=== PATIENT | female | born 1960 | race Caucasian/White ===

== ENCOUNTER → 2018-08-21 09:27 | Outpatient (CLI) | payer OTHER, SELFPAY ==
--- NOTE | 2018-08-21 09:29 | BI_ITS ---
MAMMOGRAPHY - BILATERAL SCREENING 3-D MASSIMO SYNTHESIS REASON FOR EXAM: Female, 57 years old. Bilateral Screening 3-D tomosynthesis PERTINENT HISTORY: Asymptomatic. No significant family history. TECHNIQUE: 2-D mammograms and 3-D Massimo synthesis of the breast (s) were performed. CAD was performed. COMPARISON: 08/04/2016. FINDINGS: The breast composition is almost entirely fat. Asymmetric density right breast anterior third lower inner quadrant noted, electronically circled with CC and MLO views for which spot compression views are recommended as well as a right true lateral view. Possible right breast targeted ultrasound as clinically indicated. Scattered benign appearing calcifications are again seen. No dense spiculated dominant masses or suspicious microcalcification cluster are identified. No adenopathy, skin thickening or nipple retraction identified. BI/SCREENING MAMM (CAD), BILAT IMPRESSION: Incomplete mammogram Additional right mammographic and possible ultrasound imaging recommended as described. ASSESSMENT CATEGORY: BIRADS Category 0: Incomplete. Need additional imaging evaluation as above. A letter regarding these results will be sent to the patient by the facility within 30 days. FOLLOW UP RECOMMENDATION: Additional imaging recommended as above. (E) Negative mammographic results should not deter biopsy as a palpable lesion if present should be followed on clinical grounds and biopsy performed if clinically persistent for 3 months or increasing size. Approximately 10% of breast cancers are not detected by mammography. A normal mammogram should not delay biopsy of a clinically suspicious abnormality. Dense breast tissue mainstream neoplasm. Electronically Signed: Papito Hawthorne, at 14:33 EDT Tel , Service support ,
[2018-08-25 13:36] LABS: HPV APTIMA, High Risk Negative (Negative)
== END ==
PROVIDERS: Family Provider Family Medicine; PCP Family Medicine; Referring Provider Nurse Practitioner Women's Health; Visit Provider Nurse Practitioner Women's Health
DX: Z12.31 Encounter for screening mammogram for malignant neoplasm of breast (principal); Z12.4 Encounter for screening for malignant neoplasm of cervix
CPT/HCPCS: 77063; 77067; 88175; G0145

== ENCOUNTER → 2018-08-29 08:56 | Outpatient (CLI) | payer OTHER, SELFPAY ==
--- NOTE | 2018-08-29 09:00 | BI_ITS ---
MAMMOGRAPHY - UNILATERAL DIAGNOSTIC: RIGHT BREAST REASON FOR EXAM: Female, 57 years old. Abnormal screening mammogram. PERTINENT HISTORY: Non-contributory. TECHNIQUE: Compression spot views of the right breast were obtained in the mediolateral oblique and craniocaudad views. CAD: Full Field Digital Mammography with Computer Added Detection was performed. COMPARISON: Comparison is made with prior mammogram dated August 21, 2018. FINDINGS: Breast Composition: The breasts are almost entirely fatty. There is a persistent 5 mm nodular density in the central medial portion of the right breast. Correlation with ultrasound is recommended. No other significant abnormalities are identified. BI/DIAG MAMM W/CAD, UNILAT IMPRESSION: Persistent 5 mm nodular density in the central medial portion of the right breast as described. Correlation with ultrasound is recommended. ASSESSMENT CATEGORY: BIRADS Category 0: Incomplete. Need additional imaging evaluation. A letter regarding these results will be sent to the patient by the facility within 30 days. Approximately 10% of breast cancers are not detected by mammography. A normal mammogram should not delay biopsy of a clinically suspicious abnormality. Electronically Signed: Jonh Young MD at 11:25 EDT Tel [phone], Service support ,
--- NOTE | 2018-08-29 09:00 | US_ITS ---
STUDY: ULTRASOUND BREAST - RIGHT REASON FOR EXAM: Female, 57 years old. Abnormal screening mammogram. TECHNIQUE: Axial and longitudinal images of the RIGHT breast were performed with a high resolution ultrasound transducer. COMPARISON: Comparison is made with prior mammogram done earlier in the day. FINDINGS: RIGHT Breast: There is a 5 mm x 5 mm x 3 mm cyst at the 3:00 position breast at 4 cm from nipple. There is also evidence of a 3 mm x 4 mm x 2 mm cyst at the 3:30 position breast at 2 cm from nipple. US/Breast Limited Unilateral IMPRESSION: 2 subcentimeters cysts are seen in the inferior medial portion of the right breast. ASSESSMENT CATEGORY: BIRADS Category 2: Benign. A letter regarding these results will be sent to the patient by the facility within 30 days. Electronically Signed: Jonh Young MD at 13:38 EDT Tel [phone], Service support ,
== END ==
PROVIDERS: Family Provider Family Medicine; PCP Family Medicine; Visit Provider Nurse Practitioner Women's Health
DX: R92.8 Other abnormal and inconclusive findings on diagnostic imaging of breast (principal)
CPT/HCPCS: 76642; 77065

== ENCOUNTER 2019-01-26 12:42 | Observation (INO) | payer OTHER, SELFPAY ==
[2019-01-26] VITALS (10 sets, daily range): BP systolic 141–207; BP diastolic 69–107; PULSE 50–56; RESP 16–18; TEMP 36.4–36.6; O2SAT 96–99; BMI 49.6
--- NOTE | 2019-01-26 13:02 | EKG12_ITS ---
Test Reason : REPEAT EKG Blood Pressure : / mmHG Vent. Rate : 052 BPM Atrial Rate : 052 BPM P-R Int : 170 ms QRS Dur : 092 ms QT Int : 476 ms P-R-T Axes : 017 032 047 degrees QTc Int : 442 ms Sinus bradycardia Otherwise normal ECG Confirmed by CAMILLA VELAZQUEZ ([id number]), editorial assistant MICHAEL FERNANDEZ ([id number]) on 01/29/2019 4:42:33 PM Referred By: PENELOPE Confirmed By:CAMILLA VELAZQUEZ
--- NOTE | 2019-01-26 13:04 | ED.VISSUMM ---
- ER Visit Summary Date of Service: 01/26/19 Chief Complaint: Just do not feel right History of Present Illness: The patient is a 58 F who presents for 1 week of episodic chest discomfort and left arm discomfort with some associated shortness of breath. Patient is unable to describe it but states she just does not feel right. Patient had return of her symptoms this morning and they have been ongoing for at least 2 hours. She took 1 full dose aspirin. Patient states she has left-sided neck pain that will shoot sharply into her left arm at times, and she initially thought this is what it was. However she is having diffuse chest discomfort with radiation into the left arm that is different from her chronic neck pain. Patient is currently denying any shortness of breath. No cough, abdominal pain, back pain, fever, or other complaints. Patient takes metformin but is not been diagnosed as diabetic. She has hypertension and hypercholesterolemia. She does not smoke tobacco. Denies any family history of coronary artery disease. Physical Examination: Vital signs: afebrile, hemodynamically stable, no hypoxia on room air General: well nourished, well developed, in no distress Skin: warm, dry, no rash, no pallor HEENT: normocephalic and atraumatic; PERRL, EOMI, moist mucous membranes Cardiovascular: regular rate and rhythm without murmurs, no peripheral edema, 2+ pulses all distal extremities Respiratory: No increased work of breathing, lungs are clear to auscultation bilaterally, no rales, rhonchi or wheezing Abdominal: Abdomen is soft, nontender with normoactive bowel sounds, no guarding or rebound, no masses MSK: Moves all extremities, no deformities, normal strength Neuro: Awake and alert, oriented ?4. No facial droop, sensation and motor function intact and symmetric Test Results: Abnormal Lab Results 01/26/19 01/26/19 01/26/19 13:00 13:00 13:30 WBC 9.4 RBC 4.79 Hgb 13.5 Hct 41.7 MCV 87.1 MCH 28.2 MCHC 32.4 RDW 12.9 RDW Differential 40.2 Plt Count 256 MPV 10.3 Immature Gran % (Auto) 0.200 Neut % (Auto) 66.2 Lymph % (Auto) 23.2 [place] % (Auto) 8.9 Eos % (Auto) 1.3 Baso % (Auto) 0.2 Absolute Neuts (auto) 6.2 Absolute Lymphs (auto) 2.17 Total Counted Not Reportable Sodium Cancelled 137 Potassium Cancelled 3.7 Chloride Cancelled 105 Carbon Dioxide Cancelled 28.0 Anion Gap Cancelled 4 L BUN Cancelled 15 Creatinine Cancelled 0.71 Estim Creat Clear Calc Cancelled 74.58 Est GFR (MDRD) Af Amer Cancelled 109 Est GFR (MDRD) Non-Af Cancelled 90 BUN/Creatinine Ratio Cancelled 21.2 H Glucose Cancelled 93 Calcium Cancelled 8.6 Troponin I Cancelled < 0.015 Clinical Impression(s) from Imaging Studies Chest X-Ray 01/26/19 13:15 IMPRESSION: Mild cardiomegaly. Hyperinflation. Scattered calcified granulomas. Electronically Signed: Jonh Young, at 13:38 EDT , Service support , Medications Given Discontinued Medications Morphine Sulfate () 4 mg IV X1 ONE Stop: 01/26/19 14:34 Nitroglycerin (Nitrostat) 0.4 mg SUBLINGUAL Q5M GRISEL Stop: 01/26/19 13:26 Last Admin: 01/26/19 13:43 Dose: 0.4 mg Admin: 01/26/19 13:38 Dose: 0.4 mg Admin: 01/26/19 13:33 Dose: 0.4 mg Emergency Department Course and Treatment: Patient presents for intermittent episodes of chest discomfort, currently experiencing the discomfort. She was given nitroglycerin without any relief. Patient was then given morphine. EKG showed sinus bradycardia without any ischemic changes. Troponin negative. Labs otherwise unremarkable. Chest x-ray showed mild enlarged cardiac silhouette without any other acute findings. A repeat EKG was performed since patient had not received any relief of her discomfort, and it was unchanged from prior. Because of patient's chest discomfort complaint and multiple risk factors for coronary artery disease, patient will be admitted as observation status for further chest pain rule out. HEART score is 5. Patient was discussed with Dr. Soto for admission. Treatment Plan: [] Disposition: [] Impression: Chest pain, concern for ACS This note was generated with The Extraordin[employer]ation software. It may contain incorrect words, spelling, and punctuation that were not noted in review of the chart prior to signing ED Disposition - Plan for ED Patient: Referrals: Tono Flowers MD [Primary Care Provider] -
--- NOTE | 2019-01-26 13:07 | ED.DCSUM_ITS ---
- ER Visit Summary Date of Service: 01/26/19 Chief Complaint: Just do not feel right History of Present Illness: The patient is a 58 F who presents for 1 week of episodic chest discomfort and left arm discomfort with some associated shortness of breath. Patient is unable to describe it but states she just does not feel right. Patient had return of her symptoms this morning and they have been ongoing for at least 2 hours. She took 1 full dose aspirin. Patient states she has left-sided neck pain that will shoot sharply into her left arm at times, and she initially thought this is what it was. However she is having diffuse chest discomfort with radiation into the left arm that is different from her chronic neck pain. Patient is currently denying any shortness of breath. No cough, abdominal pain, back pain, fever, or other complaints. Patient takes metformin but is not been diagnosed as diabetic. She has hypertension and hypercholesterolemia. She does not smoke tobacco. Denies any family history of coronary artery disease. Physical Examination: Vital signs: afebrile, hemodynamically stable, no hypoxia on room air General: well nourished, well developed, in no distress Skin: warm, dry, no rash, no pallor HEENT: normocephalic and atraumatic; PERRL, EOMI, moist mucous membranes Cardiovascular: regular rate and rhythm without murmurs, no peripheral edema, 2+ pulses all distal extremities Respiratory: No increased work of breathing, lungs are clear to auscultation bilaterally, no rales, rhonchi or wheezing Abdominal: Abdomen is soft, nontender with normoactive bowel sounds, no guarding or rebound, no masses MSK: Moves all extremities, no deformities, normal strength Neuro: Awake and alert, oriented ?4. No facial droop, sensation and motor function intact and symmetric Test Results: Abnormal Lab Results 01/26/19 01/26/19 01/26/19 13:00 13:00 13:30 WBC 9.4 RBC 4.79 Hgb 13.5 Hct 41.7 MCV 87.1 MCH 28.2 MCHC 32.4 RDW 12.9 RDW Differential 40.2 Plt Count 256 MPV 10.3 Immature Gran % (Auto) 0.200 Neut % (Auto) 66.2 Lymph % (Auto) 23.2 [place] % (Auto) 8.9 Eos % (Auto) 1.3 Baso % (Auto) 0.2 Absolute Neuts (auto) 6.2 Absolute Lymphs (auto) 2.17 Total Counted Not Reportable Sodium Cancelled 137 Potassium Cancelled 3.7 Chloride Cancelled 105 Carbon Dioxide Cancelled 28.0 Anion Gap Cancelled 4 L BUN Cancelled 15 Creatinine Cancelled 0.71 Estim Creat Clear Calc Cancelled 74.58 Est GFR (MDRD) Af Amer Cancelled 109 Est GFR (MDRD) Non-Af Cancelled 90 BUN/Creatinine Ratio Cancelled 21.2 H Glucose Cancelled 93 Calcium Cancelled 8.6 Troponin I Cancelled < 0.015 Clinical Impression(s) from Imaging Studies Chest X-Ray 01/26/19 13:15 IMPRESSION: Mild cardiomegaly. Hyperinflation. Scattered calcified granulomas. Electronically Signed: Jonh Young, at 13:38 EDT , Service support , Medications Given Discontinued Medications Morphine Sulfate () 4 mg IV X1 ONE Stop: 01/26/19 14:34 Nitroglycerin (Nitrostat) 0.4 mg SUBLINGUAL Q5M GRISEL Stop: 01/26/19 13:26 Last Admin: 01/26/19 13:43 Dose: 0.4 mg Admin: 01/26/19 13:38 Dose: 0.4 mg Admin: 01/26/19 13:33 Dose: 0.4 mg Emergency Department Course and Treatment: Patient presents for intermittent episodes of chest discomfort, currently experiencing the discomfort. She was g iven nitroglycerin without any relief. Patient was then given morphine. EKG showed sinus bradycardia without any ischemic changes. Troponin negative. Labs otherwise unremarkable. Chest x-ray showed mild enlarged cardiac silhouette without any other acute findings. A repeat EKG was performed since patient had not received any relief of her discomfort, and it was unchanged from prior. Because of patient's chest discomfort complaint and multiple risk factors for coronary artery disease, patient will be admitted as observation status for further chest pain rule out. HEART score is 5. Patient was discussed with Dr. Soto for admission. Treatment Plan: [] Disposition: [] Impression: Chest pain, concern for ACS This note was generated with [employer] software. It may contain incorrect words, spelling, and punctuation that were not noted in review of the chart prior to signing ED Disposition - Plan for ED Patient: Referrals: Tono Flowers MD [Primary Care Provider] -
--- NOTE | 2019-01-26 13:15 | RAD_ITS ---
STUDY: X-RAY CHEST REASON FOR EXAM: Female, 58 years old. Chest pain. Hypertension. TECHNIQUE: PA and lateral views of the chest. COMPARISON: Comparison is made with prior examination dated July 17, 2015. FINDINGS: EKG electrodes are seen. Hyperinflation. Scattered calcified granulomas. No acute infiltrate is seen. There is no demonstrated pleural abnormality. There is mild cardiac enlargement. Normal mediastinum and liss. Normal visualized pulmonary arteries. Normal visualized aortic arch and descending thoracic aorta. Normal visualized thoracic spine. Normal visualized ribs, clavicles, and shoulders. There is no demonstrated abnormality of the visualized soft tissue structures of the upper abdomen. RAD/Chest PA and Lateral IMPRESSION: Mild cardiomegaly. Hyperinflation. Scattered calcified granulomas. Electronically Signed: Jonh Young, at 13:38 EDT , Service support ,
[2019-01-26 13:19] LABS: Absolute Lymphocyte Count 2.17 X10^3/ul (0.83-4.51); Absolute Neutrophil Count 6.2 X10^3/uL (2.0-7.7); Basophil# 0.02 X10^3/uL; Basophil% 0.2 % (0-1); Eosinophil# 0.12 X10^3/uL; Eosinophils% 1.3 % (0-5); Hematocrit 41.7 % (37-47); Hemoglobin 13.5 g/dl (12.0-15.0); Lymphocyte # 2.17 X10^3/ul (4.0); Lymphocyte % 23.2 % (19-41); Mean Corp Hgb Conc 32.4 g/gl (32-36); Mean Corpuscular Hgb 28.2 pg (27.0-32.0); Mean Corpuscular Volume 87.1 fL (81-99); Mean Platelet Vol. 10.3 fl (6.2-12.0); Monocyte# 0.83 X10^3/uL; Monocyte% 8.9 % (0-10); Neutrophil # 6.19 X10^3/uL (2.7-7.7); Neutrophil % 66.2 % (47-70); Platelet Count 256 K/mm3 (150-450); RBC Distribution Width CV 12.9 % (11.6-14.6); RBC Distribution Width SD 40.2 fl (35.1-43.9); Red Blood Count 4.79 M/mm3 (4.2-5.4); White Blood Count 9.4 K/mm3 (4.4-11.0)
[2019-01-26 13:20] LABS: POSITIVE COUNT NO; POSITIVE DIFFERENTIAL NO; POSITIVE MORPHOLOGY NO
--- NOTE | 2019-01-26 13:22 | NURSING ---
chemistries hemolized
[2019-01-26 13:59] LABS: Anion Gap 4 (5-15); BUN 15 mg/dL (7-18); BUN/Creat Ratio 21.2 RATIO (10-20); Calcium,Total 8.6 mg/dL (8.5-10.1); Chloride 105 mmol/L (98-107); Creatinine, Serum 0.71 mg/dL (0.55-1.02); EST Glomerular Filtration Rate 90 mL/min (>60); Est Glom Filt Rate - Afr Amer 109 mL/min (>60); Estimated Creatinine Clearance 74.58 ml/min; Glucose 93 mg/dL (74-106); Potassium 3.7 mmol/L (3.5-5.1); Sodium Level 137 mmol/L (136-145)
--- NOTE | 2019-01-26 14:33 | EKG12_ITS ---
Test Reason : CP Blood Pressure : / mmHG Vent. Rate : 053 BPM Atrial Rate : 053 BPM P-R Int : 162 ms QRS Dur : 094 ms QT Int : 446 ms P-R-T Axes : 042 037 056 degrees QTc Int : 418 ms Sinus bradycardia Otherwise normal ECG Confirmed by CAMILLA VELAZQUEZ ([id number]), book or script editor MICHAEL FERNANDEZ ([id number]) on 01/29/2019 4:43:04 PM Referred By: PENELOPE Confirmed By:CAMILLA VELAZQUEZ
--- NOTE | 2019-01-26 14:58 | NURSING ---
PCU OBS CP, CONCERN FOR ACS
[2019-01-26] MEDS: Morphine 4 MG/ML Syringe IV (15:13)
--- NOTE | 2019-01-26 15:32 | EKG12_ITS ---
Test Reason : CP Blood Pressure : / mmHG Vent. Rate : 049 BPM Atrial Rate : 049 BPM P-R Int : 162 ms QRS Dur : 096 ms QT Int : 492 ms P-R-T Axes : 041 037 048 degrees QTc Int : 444 ms Sinus bradycardia Otherwise normal ECG When compared with ECG of 26-JAN-2019 14:38, MANUAL COMPARISON REQUIRED, DATA IS UNCONFIRMED Confirmed by VIVI HALE, MARIO ([id number]), news video editor MICHAEL FERNANDEZ ([id number]) on 01/31/2019 1:22:41 PM Referred By: STEVE Confirmed By:MARIO TRINIDAD MD
--- NOTE | 2019-01-26 15:57 | HP.PCM_ITS ---
Problem List (1) Atypical chest pain Status: Acute (2) Dyslipidemia Status: Acute (3) Hypertension Status: Chronic (4) Diabetes mellitus type II Status: Chronic History of Present Illness Date of Admission: 01/26/19 Chief Complaint: Chest pain The patient is a 58 year old F with history of hypertension, dyslipidemia and diabetes mellitus type 2 came to ED with intermittent chest pain for about 1 week. Chest pain is mainly midsternal to left-sided with radiation to left arm, last for a few seconds to a few minutes, unrelated to activity. Patient did not come to ER as he thought it is from her cervical spine arthritis. EKG in ED shows sinus bradycardia at 53 bpm. Previous EKG in July 2015 shows 61 bpm with PVCs. Chest x-ray shows mild cardiomegaly and hyperinflation no acute disease Past Medical History Past Medical History (Chronic Problems): Chronic Problems (Last Reviewed 08/21/18 @ 08:13 by Teresa Sandoval) Hypertension (Chronic) Diabetes mellitus type II (Chronic) Medical History: Medical History (Last Reviewed 08/21/18 @ 08:13 by Teresa Sandoval) Anxiety and depression F41.9, F32.9 Hypertension I10 Allergies Penicillins Allergy (Verified 01/26/19 12:46) Rash Home Medications: Ambulatory Orders Medication Instructions Recorded Lisinopril [Zestril] 10 mg PO BID 07/17/15 Metoprolol Tartrate [Lopressor 150 mg PO DAILY 07/17/15 (beta mg)] Multivitamins,Therapeutic 1 tab PO DAILY 07/17/15 [Multivitamin] Sertraline HCl [Zoloft] 50 mg PO DAILY 07/17/15 Hydrochlorothiazide [Hctz] 25 mg PO DAILY 01/26/19 Metformin HCl 750 mg PO DAILY 01/26/19 Pravastatin Sodium 40 mg PO QHS 01/26/19 Surgical History: Surgical History (Last Updated 08/21/18 @ 08:13 by Teresa Sandoval) Status post right foot surgery Z98.890 Surgical History: noncontributory Smoking Status: Never smoker - *Family History Maternal History Items: - - No history of premature coronary artery disease Review of Systems Constitutional: Denies: Chills, Fever, Weight Change HEENT: Denies: Head Aches, Sinus Congestion, Sinus Drainage Cardiovascular: Reports: Chest Pain. Denies: Palpitations Respiratory: Reports: Shortness of Breath. Denies: Cough, Shortness of breath at rest, Sputum production Gastrointestinal: Denies: Abdominal Pain, Nausea, Vomiting Genitourinary: Denies: Dysuria Musculoskeletal: Reports: Back Pain, Joint Pain, Joint stiffness, Neck Pain. Denies: Joint Tenderness Skin: Denies: Rash, Wounds Neurological: Denies: Numbness, Tingling, Focal weakness Psychiatric: Denies: Anxiety, Depression, Homicidal Ideations, Suicidal Ideations Hematologic/ Lymphatic: Denies: Easy Bruising, Easy Bleeding VTE Information - Inpt Only VTE Present on Admission: No VTE Mechan Device Prophylaxis: None VTE Pharm Prophylaxis ordered?: Yes Patient Problems: Active and Suspected Problems (Last Reviewed 08/21/18 @ 08:13 by Teresa Sandoval) Atypical chest pain (Acute) Dyslipidemia (Acute) - Physical Exam General: Alert, Oriented x3, Cooperative HEENT: Atraumatic, PERRLA, EOMI, Normocephalic Neck: Supple, No JVD, Negative Carotid Bruits Lungs: Clear to auscultation, Normal air movement, No rhonchi, No wheeze, No rales Cardiovascular: Regular rate, Regular Rhythm, Normal S1, Normal S2, No murmurs Abdomen: Bowel Sounds Present, Soft, Non Tender, Non-Distended Extremities: Capillary Refill Less than 3 Seconds, Edema Skin: No rashes, No breakdown Musculoskeletal: No Tenderness to Palpation of Joints or Extremities, Arthritic Changes Lymphatic: No Cervical, Supraclavicular, or Inguinal Adenopathy Neurological: Cranial nerves II-XII grossly intact, Deep Tendon Reflexes 2+/4 and Symmetrical, Neuro grossly intact Psych/Mental Status: Normal Affect, Appropriate Vital Signs Temp Pulse Resp BP Pulse Ox 97.5 F L 51 L 16 161/95 H 99 01/26/19 12:43 01/26/19 15:14 01/26/19 15:14 01/26/19 15:14 01/26/19 15:14 Oxygen Flow Rate (L/min) 2 Oxygen Delivery Method Nasal Cannula Weight: 289 lb 0.416 oz Body Mass Index (BMI) 49.6 Laboratory Tests Past 24 Hrs 01/26/19 01/26/19 01/26/19 13:00 13:00 13:30 WBC 9.4 RBC 4.79 Hgb 13.5 Hct 41.7 MCV 87.1 MCH 28.2 MCHC 32.4 RDW 12.9 RDW Differential 40.2 Plt Count 256 MPV 10.3 Immature Gran % (Auto) 0.200 Neut % (Auto) 66.2 Lymph % (Auto) 23.2 [place] % (Auto) 8.9 Eos % (Auto) 1.3 Baso % (Auto) 0.2 Absolute Neuts (auto) 6.2 Absolute Lymphs (auto) 2.17 Total Counted Not Reportable Sodium Cancelled 137 Potassium Cancelled 3.7 Chloride Cancelled 105 Carbon Dioxide Cancelled 28.0 Anion Gap Cancelled 4 L BUN Cancelled 15 Creatinine Cancelled 0.71 Estim Creat Clear Calc Cancelled 74.58 Est GFR (MDRD) Af Amer Cancelled 109 Est GFR (MDRD) Non-Af Cancelled 90 BUN/Creatinine Ratio Cancelled 21.2 H Glucose Cancelled 93 Calcium Cancelled 8.6 Troponin I Cancelled < 0.015 Assessment/Plan All Active Problems (Last Reviewed 08/21/18 @ 08:13 by Teresa Sandoval) Atypical chest pain (Acute) Dyslipidemia (Acute) The patient is a 58 year old F with history of hypertension, dyslipidemia and borderline diabetes mellitus type 2 came to ED with intermittent chest pain for about 1 week. Chest pain is mainly midsternal to left-sided with radiation to left arm, last for a few seconds to a few minutes, unrelated to activity, sometimes associated with shortness of breath. Patient did not come to ER as he thought it is from her cervical spine arthritis. EKG in ED shows sinus bradycardia at 53 bpm. Previous EKG in July 2015 shows 61 bpm with PVCs. Chest x-ray shows mild cardiomegaly and hyperinflation no acute disease. Vital signs in the ED shows elevated blood pressure 207/107, heart rate 52. Respiratory rate 16. 1. Atypical chest pain: Patient is being admitted to PCU. Patient had stress test more than 5 years ago and probably was negative. Cycle cardiac enzymes. Treadmill nuclear stress test tomorrow morning. On baby aspirin, metoprolol, lisinopril and statin. Nitro sublingual as needed for chest pain. 2. Hypertension: Blood pressure is uncontrolled. Last time it was 130 systolic in physician office about 3 months ago. On lisinopril 10 mg twice daily. Hydralazine 10 mg IV every 4 hourly as needed for systolic blood pressure more than 180 mmHg. 3. Borderline diabetes mellitus type 2: Glucose is 93 and BMP. She thinks he has borderline diabetes. A1c tomorrow a.m. 4. Other chronic comorbidities include dyslipidemia, morbid obesity, chronic degenerative arthritis of cervical spine, lumbar spine and bilateral knee joints. Home medication reconciliation done. DVT prophylaxis: On Lovenox 40 mg subcu daily. Clinical Impression(s) from Imaging Studies Chest X-Ray 01/26/19 13:15 IMPRESSION: Mild cardiomegaly. Hyperinflation. Scattered calcified granulomas. Laboratory Results 01/26/19 13:00: WBC 9.4, RBC 4.79, Hgb 13.5, Hct 41.7, MCV 87.1, MCH 28.2, MCHC 32.4, RDW 12.9, RDW Differential 40.2, Plt Count 256, MPV 10.3, Immature Gran % (Auto) 0.200, Neut % (Auto) 66.2, Lymph % (Auto) 23.2, [place] % (Auto) 8.9, Eos % (Auto) 1.3, Baso % (Auto) 0.2, Absolute Neuts (auto) 6.2, Absolute Lymphs (auto) 2.17, Total Counted Not Reportable 01/26/19 13:30: Sodium 137, Potassium 3.7, Chloride 105, Carbon Dioxide 28.0, Anion Gap 4 L, BUN 15, Creatinine 0.71, Estim Creat Clear Calc 74.58, Est GFR (MDRD) Af Amer 109, Est GFR (MDRD) Non-Af 90, BUN/Creatinine Ratio 21.2 H, Glucose 93, Calcium 8.6, Troponin I < 0.015 [] Code Visit OBSV E&M: 52598 Initial observation care L3
[2019-01-26] MEDS: Enoxaparin 40 MG/0.4 ML Syringe SC (16:19)
[2019-01-26 20:36] LABS: Hematocrit 37.8 % (37-47); Hemoglobin 12.1 g/dl (12.0-15.0); Mean Corpuscular Hgb 27.8 pg (27.0-32.0); Mean Corpuscular Volume 86.9 fL (81-99); Mean Platelet Vol. 9.9 fl (6.2-12.0); Platelet Count 235 K/mm3 (150-450); RBC Distribution Width CV 12.8 % (11.6-14.6); RBC Distribution Width SD 41.1 fl (35.1-43.9); Red Blood Count 4.35 M/mm3 (4.2-5.4); White Blood Count 10.3 K/mm3 (4.4-11.0)
[2019-01-26 20:37] LABS: Scan Indicated on CBC? Y/N NO
[2019-01-26 20:49] LABS: Anion Gap 4 (5-15); BUN 14 mg/dL (7-18); BUN/Creat Ratio 17.6 RATIO (10-20); Calcium,Total 8.4 mg/dL (8.5-10.1); Chloride 101 mmol/L (98-107); EST Glomerular Filtration Rate 79 mL/min (>60); Est Glom Filt Rate - Afr Amer 95 mL/min (>60); Estimated Creatinine Clearance 66.19 ml/min; Glucose 94 mg/dL (74-106); Potassium 3.1 mmol/L (3.5-5.1); Sodium Level 135 mmol/L (136-145)
[2019-01-26 20:56] LABS: Partial Thromboplast Time 31.5 Seconds (24.1-36.2); Prothrombin Time (Protime)PT. 13.2 SECONDS (11.7-14.9)
[2019-01-26] MEDS: Lisinopril 10 MG Tablet PO (22:22)
[2019-01-26] MEDS: Pravastatin 40 MG Tablet PO (22:41)
[2019-01-27] VITALS (8 sets, daily range): BP systolic 130–148; BP diastolic 49–77; PULSE 52–78; RESP 16–18; TEMP 36.1–37.2; O2SAT 96–97
[2019-01-27 05:35] LABS: Absolute Lymphocyte Count 2.39 X10^3/ul (0.83-4.51); Absolute Neutrophil Count 5.9 X10^3/uL (2.0-7.7); Basophil# 0.03 X10^3/uL; Basophil% 0.3 % (0-1); Eosinophil# 0.13 X10^3/uL; Eosinophils% 1.4 % (0-5); Hematocrit 37.7 % (37-47); Hemoglobin 12.3 g/dl (12.0-15.0); Lymphocyte # 2.39 X10^3/ul (4.0); Lymphocyte % 25.7 % (19-41); Mean Corp Hgb Conc 32.6 g/gl (32-36); Mean Corpuscular Hgb 28.4 pg (27.0-32.0); Mean Corpuscular Volume 87.1 fL (81-99); Mean Platelet Vol. 9.4 fl (6.2-12.0); Monocyte# 0.81 X10^3/uL; Monocyte% 8.7 % (0-10); Neutrophil # 5.91 X10^3/uL (2.7-7.7); Neutrophil % 63.6 % (47-70); POSITIVE COUNT NO; POSITIVE DIFFERENTIAL NO; POSITIVE MORPHOLOGY NO; Platelet Count 194 K/mm3 (150-450); RBC Distribution Width CV 12.9 % (11.6-14.6); RBC Distribution Width SD 41.4 fl (35.1-43.9); Red Blood Count 4.33 M/mm3 (4.2-5.4); White Blood Count 9.3 K/mm3 (4.4-11.0)
[2019-01-27 05:46] LABS: Partial Thromboplast Time 29.6 Seconds (24.1-36.2)
--- NOTE | 2019-01-27 05:55 | EKG12_ITS ---
Test Reason : AM EKG Blood Pressure : / mmHG Vent. Rate : 053 BPM Atrial Rate : 053 BPM P-R Int : 146 ms QRS Dur : 092 ms QT Int : 476 ms P-R-T Axes : 017 035 051 degrees QTc Int : 446 ms Sinus bradycardia Otherwise normal ECG When compared with ECG of 26-JAN-2019 16:27, MANUAL COMPARISON REQUIRED, DATA IS UNCONFIRMED Confirmed by VIVI HALE, MARIO ([id number]), publication editor MICHAEL FERNANDEZ ([id number]) on 01/31/2019 1:22:00 PM Referred By: DR KOHLI Confirmed By:MARIO TRINIDAD MD
[2019-01-27 06:00] LABS: International Normalized Ratio 1.1; Prothrombin Time (Protime)PT. 13.9 SECONDS (11.7-14.9)
[2019-01-27 06:04] LABS: Anion Gap 6 (5-15); BUN 13 mg/dL (7-18); Calcium,Total 8.6 mg/dL (8.5-10.1); Chloride 104 mmol/L (98-107); Cholesterol 148 mg/dL (200); Creatinine, Serum 0.76 mg/dL (0.55-1.02); EST Glomerular Filtration Rate 83 mL/min (>60); Est Glom Filt Rate - Afr Amer 100 mL/min (>60); Estimated Creatinine Clearance 69.67 ml/min; Glucose 148 mg/dL (74-106); High Density Lipoprotein 47 mg/dL; Magnesium 2.2 mg/dL (1.6-2.6); Potassium 3.6 mmol/L (3.5-5.1); Sodium Level 140 mmol/L (136-145); Triglycerides 174 mg/dL; Very Low Density Lipoprotein 35 mg/dL (5-40)
[2019-01-27] MEDS: Lisinopril 10 MG Tablet PO (06:19)
[2019-01-27] MEDS: Aspirin E.C. 81 MG Tablet PO (06:19)
--- NOTE | 2019-01-27 08:00 | STEWCON_ITS ---
Reason For Study: Chest Pain Stress Results Protocol: Dobutamine Stress Echo Maximum Predicted HR: 162 bpm Target HR: 138 bpm % Maximum Predicted HR: 81 % DurationHeart Rate Stage (mm:ss) (bpm) BP Comment Baseline 56 149/93No Chest Pain; Definity 0.6 ML Given DSE 10 MCG 3:13 58 131/73No Chest Pain DSE 20 MCG 3:00 89 181/58No Chest Pain DSE 30 MCG 3:00 115 155/58Chest Heavy DSE 40 MCG 5:05 131 129/67Chest Heavy; Atropine 1 MG IVP Recovery 94 125/62No Chest Pain Stress Duration: 14:18 mm:ss Maximum Stress HR: 131 bpm METS: 1 Baseline Echocardiogram Findings The estimated ejection fraction is 65 %. Stress Echo Wall motion Data Resting WM Intermediate WM Stress WM Resting Wall Motion Wall Motion Stress No regional wall motion No regional wall motion abnormalities noted. abnormalities noted. EKG Data Normal intervals are noted. The patient was titrated from 10 mcg to a maximum of 40 mcg of dobutamine during the stress. The maximum heart rate attained was 131 beats per minute. This was 80% of maximum predicted heart rate. During dobutamine infusion, there were no ST or T wave changes noted to suggest ischemia. No clinical angina was noted. Interpretation Summary The estimated ejection fraction is 65 %. Normal, adequate, dobutamine echocardiogram. Negative for ischemia by EKG and echocardiographic criteria. No anginal symptoms noted. Rare PVCs noted during infusion into recovery which is a nonspecific finding. Hypertensive blood pressure response to dobutamine. Patient had almost complete cavity obliteration at peak infusion. Peak LV ejection fraction is 75%. Test terminated due to attainment of target heart rate. Decreased sensitivity due to poor echo windows requiring Definity enhancing agent. No complications. The study was technically difficult. Contrast injection was performed. Ordering Physician: Krissy Jean Referring Physician: Marcus Orellana Performed By: Page Cole, RDCS, RVT
[2019-01-27 08:56] LABS: Hemoglobin A1c 6.1 % (4.2-6.3)
[2019-01-27] MEDS: Multivitamins,Therapeutic Tablet 1 TABLET PO (09:01)
[2019-01-27] MEDS: Metoprolol Tartrate 100 MG Tablet 150 MG PO (09:02)
[2019-01-27] MEDS: Sertraline 50 MG Tablet PO (09:03)
--- NOTE | 2019-01-27 11:13 | DCINST_ITS ---
- Discharge Diagnoses Current Active Problems: Current Active and Chronic Problems (Last Reviewed 08/21/18 @ 08:13 by Teresa Sandoval) Atypical chest pain (Acute) Dyslipidemia (Acute) You will use the following diet at home:: Cardiac Your food should be the consistency of: Regular Your liquids should be the consistency of: Regular/Thin Weight Bearing Status: Weight bearing as tolerated Call your doctor if you observe: Chest pain Instructions: Warning Signs of a Heart Attack, What Is Angina? Allergies/Adverse Reactions: Allergies Penicillins Allergy (Verified 01/26/19 12:46) Rash Medications to take at Discharge Lisinopril [Zestril] 10 mg PO BID 07/17/15 Metoprolol Tartrate [Lopressor (beta mg)] 150 mg PO DAILY 07/17/15 Multivitamins,Therapeutic [Multivitamin] 1 tab PO DAILY 07/17/15 Sertraline HCl [Zoloft] 50 mg PO DAILY 07/17/15 Hydrochlorothiazide [Hctz] 25 mg PO DAILY 01/26/19 Metformin HCl 750 mg PO DAILY 01/26/19 Pravastatin Sodium 40 mg PO QHS 01/26/19 Aspirin E.C. [Ecotrin] 81 mg PO DAILY@0800 #30 tablet 01/27/19 Nitroglycerin [Nitrostat] 0.4 mg SUBLINGUAL Q5M PRN #30 tablet 01/27/19 The following prescriptions were given: Aspirin E.C. [Ecotrin] 81 mg PO DAILY@0800 #30 tablet Nitroglycerin [Nitrostat] 0.4 mg SUBLINGUAL Q5M PRN #30 tablet PRN Reason: CHEST PAIN Primary Care Physician: Tono Flowers MD [Primary Care Provider] - Please follow up with your Primary Care Physician in: one week Test Results: Test results from this visit will be discussed in further detail at your follow- up appointment, if applicable. Proposed Discharge Date: 01/27/19
--- NOTE | 2019-01-27 13:23 | NURSING ---
student nurse charting reviewed
--- NOTE | 2019-01-27 15:00 | PCM.DC.SUM ---
Discharge Date and Diagnosis Date of Admission: 01/26/19 Date of Discharge: 01/27/19 - Primary Discharge Diagnosis chest pain - Secondary Discharge Diagnosis Chronic Problems (Last Reviewed 08/21/18 @ 08:13 by Teresa Sandoval) Hypertension (Chronic) Diabetes mellitus type II (Chronic) Hospital Course and Treatment Imaging Results: 01/27/19 08:00 Stress Test Echo W/Contrast [ECHO] Routine Diagnostic Data Chest X-Ray 01/26/19 13:15 IMPRESSION: Mild cardiomegaly. Hyperinflation. Scattered calcified granulomas. Electronically Signed: Jonh Young, at 13:38 EDT , Service support , Stress Echo Interpretation Summary The estimated ejection fraction is 65 %. Normal, adequate, dobutamine echocardiogram. Negative for ischemia by EKG and echocardiographic criteria. No anginal symptoms noted. Rare PVCs noted during infusion into recovery which is a nonspecific finding. Hypertensive blood pressure response to dobutamine. Patient had almost complete cavity obliteration at peak infusion. Peak LV ejection fraction is 75%. Test terminated due to attainment of target heart rate. Decreased sensitivity due to poor echo windows requiring Definity enhancing agent. No complications. The study was technically difficult. Contrast injection was performed. Operations: None Procedures: Stress test Summary of Care Provided: The patient is a 58 year old F with a history of HTN, hyperlipidemia and diabetes mellitus who was admitted with a complaint of chest pain for ~ 1 week prior to admission. Pain radiated to her left arm. She had been thinking that it was due to his cervical spine arthritis so she did not come into the ED. However pain persisted so she came into the ED when her troponin was negative. EKG shows sinus bradycardia with rate of 53 bpm but no acute ST changes. Chest x-ray showed mild cardiomegaly and hyperinflation with no acute disease. Stress echocardiogram done was normal with EF of 65%. She remained stable and was discharged home on 01/27/2019. She was discharged with a prescription for aspirin 81 mg daily and sublingual nitroglycerin as needed. She is follow-up with her primary care doctor in 1 week. Patient seen and examined prior to discharge. She had no complaints and felt well. Review of systems otherwise negative. Labs and vitals reviewed. Home medications reviewed and reconciled. o/e: Vital Signs Height 5 ft 4 in Weight: 289 lb Weight in Pounds 289.0 lbs Pulse Ox 97 Temperature 97 F Pulse Rate 52 Respiratory Rate 16 Blood Pressure 138/77 Blood Pressure Position Sitting General: Alert, Oriented x3, Cooperative HEENT: Atraumatic, PERRLA, EOMI, Normocephalic Neck: Supple, No JVD, Negative Carotid Bruits Lungs: Clear to auscultation, Normal air movement, No rhonchi, No wheeze, No rales Cardiovascular: Regular rate, Regular Rhythm, Normal S1, Normal S2, No murmurs Abdomen: Bowel Sounds Present, Soft, Non Tender, Non-Distended Extremities: Capillary Refill Less than 3 Seconds, Edema Skin: No rashes, No breakdown Musculoskeletal: No Tenderness to Palpation of Joints or Extremities, Arthritic Changes Lymphatic: No Cervical, Supraclavicular, or Inguinal Adenopathy Neurological: Cranial nerves II-XII grossly intact, Deep Tendon Reflexes 2+/4 and Symmetrical, Neuro grossly intact Psych/Mental Status: Normal Affect, Appropriate - Physical Exam Vital Signs Temp Pulse Resp BP Pulse Ox 97 F L 52 L 16 138/77 H 97 01/27/19 09:00 01/27/19 10:46 01/27/19 09:00 01/27/19 09:02 01/27/19 10:00 Oxygen Flow Rate (L/min) 2 Oxygen Delivery Method Room Air Weight: 289 lb Body Mass Index (BMI) 49.6 Intake and Output for Last 24 Hours 01/25/19 01/26/19 01/27/19 23:59 23:59 23:59 Intake Total 1840 / 1840 340 / 340 Balance 1840 / 1840 340 / 340 Laboratory Tests Past 24 Hrs 01/26/19 01/26/19 01/26/19 16:43 20:00 20:00 WBC 10.3 RBC 4.35 Hgb 12.1 Hct 37.8 MCV 86.9 MCH 27.8 MCHC 32.0 RDW 12.8 RDW Differential 41.1 Plt Count 235 MPV 9.9 Immature Gran % (Auto) Neut % (Auto) Lymph % (Auto) [place] % (Auto) Eos % (Auto) Baso % (Auto) Absolute Neuts (auto) Absolute Lymphs (auto) Total Counted PT INR APTT Sodium Potassium Chloride Carbon Dioxide Anion Gap BUN Creatinine Estim Creat Clear Calc Est GFR (MDRD) Af Amer Est GFR (MDRD) Non-Af BUN/Creatinine Ratio Glucose Hemoglobin A1c Calcium Magnesium Troponin I < 0.015 < 0.015 Triglycerides Cholesterol LDL Cholesterol VLDL Cholesterol HDL Cholesterol TSH 01/26/19 01/26/19 01/26/19 20:00 20:00 22:30 WBC RBC Hgb Hct MCV MCH MCHC RDW RDW Differential Plt Count MPV Immature Gran % (Auto) Neut % (Auto) Lymph % (Auto) [place] % (Auto) Eos % (Auto) Baso % (Auto) Absolute Neuts (auto) Absolute Lymphs (auto) Total Counted PT 13.2 INR 1.0 APTT 31.5 Sodium 135 L Potassium 3.1 L Chloride 101 Carbon Dioxide 30.0 Anion Gap 4 L BUN 14 Creatinine 0.80 Estim Creat Clear Calc 66.19 Est GFR (MDRD) Af Amer 95 Est GFR (MDRD) Non-Af 79 BUN/Creatinine Ratio 17.6 Glucose 94 Hemoglobin A1c Calcium 8.4 L Magnesium Troponin I < 0.015 Triglycerides Cholesterol LDL Cholesterol VLDL Cholesterol HDL Cholesterol TSH 01/27/19 01/27/19 01/27/19 05:26 05:26 05:26 WBC 9.3 RBC 4.33 Hgb 12.3 Hct 37.7 MCV 87.1 MCH 28.4 MCHC 32.6 RDW 12.9 RDW Differential 41.4 Plt Count 194 MPV 9.4 Immature Gran % (Auto) 0.300 Neut % (Auto) 63.6 Lymph % (Auto) 25.7 [place] % (Auto) 8.7 Eos % (Auto) 1.4 Baso % (Auto) 0.3 Absolute Neuts (auto) 5.9 Absolute Lymphs (auto) 2.39 Total Counted Not Reportable PT INR APTT Sodium 140 Potassium 3.6 Chloride 104 Carbon Dioxide 30.0 Anion Gap 6 BUN 13 Creatinine 0.76 Estim Creat Clear Calc 69.67 Est GFR (MDRD) Af Amer 100 Est GFR (MDRD) Non-Af 83 BUN/Creatinine Ratio 17.0 Glucose 148 H Hemoglobin A1c 6.1 Calcium 8.6 Magnesium 2.2 Troponin I Triglycerides 174 Cholesterol 148 LDL Cholesterol 66 VLDL Cholesterol 35 HDL Cholesterol 47 TSH 1.40 01/27/19 05:26 WBC RBC Hgb Hct MCV MCH MCHC RDW RDW Differential Plt Count MPV Immature Gran % (Auto) Neut % (Auto) Lymph % (Auto) [place] % (Auto) Eos % (Auto) Baso % (Auto) Absolute Neuts (auto) Absolute Lymphs (auto) Total Counted PT 13.9 INR 1.1 APTT 29.6 Sodium Potassium Chloride Carbon Dioxide Anion Gap BUN Creatinine Estim Creat Clear Calc Est GFR (MDRD) Af Amer Est GFR (MDRD) Non-Af BUN/Creatinine Ratio Glucose Hemoglobin A1c Calcium Magnesium Troponin I Triglycerides Cholesterol LDL Cholesterol VLDL Cholesterol HDL Cholesterol TSH Discharge Diet: Low fat/ Low Cholesterol Discharge Activity: Return to Normal Activity Weight Bearing Status: Weight bearing as tolerated Call your doctor if you observe: Chest pain Home Medications: Medications to take at Discharge Lisinopril [Zestril] 10 mg PO BID 07/17/15 Metoprolol Tartrate [Lopressor (beta mg)] 150 mg PO DAILY 07/17/15 Multivitamins,Therapeutic [Multivitamin] 1 tab PO DAILY 07/17/15 Sertraline HCl [Zoloft] 50 mg PO DAILY 07/17/15 Hydrochlorothiazide [Hctz] 25 mg PO DAILY 01/26/19 Metformin HCl 750 mg PO DAILY 01/26/19 Pravastatin Sodium 40 mg PO QHS 01/26/19 Aspirin E.C. [Ecotrin] 81 mg PO DAILY@0800 #30 tablet 01/27/19 Nitroglycerin [Nitrostat] 0.4 mg SUBLINGUAL Q5M PRN #30 tablet 01/27/19 Following Prescrptions Were Given to Patient: Aspirin E.C. [Ecotrin] 81 mg PO DAILY@0800 #30 tablet Nitroglycerin [Nitrostat] 0.4 mg SUBLINGUAL Q5M PRN #30 tablet PRN Reason: CHEST PAIN Primary Care Physician: Tono Flowers MD [Primary Care Provider] - Please follow up with your Primary Care Physician in: one week Patient Instructions: What Is Angina?, Warning Signs of a Heart Attack Disposition: Home Minutes spent on discharge:: 35 Patient Condition:: Stable Medical Necessity - Tobacco Use Smoking Status: Never smoker Meaningful Use Info Meaningful Use Diagnoses (Choose all that apply): None applicable Code Visit Inpatient E&M: 42275 Disch Hosp
== END 2019-01-27 11:12 | disposition home or self-care (01) ==
LOC: ED 13:37 → PCU 15:36
PROVIDERS: Admitting Provider Internal Medicine; Emergency Provider Emergency Medicine; Family Provider Family Medicine; PCP Family Medicine; Visit Provider Student in an Organized Health Care Education/Training Program
DX: R07.89 Other chest pain (principal); E11.9 Type 2 diabetes mellitus without complications; I10 Essential (primary) hypertension; Z79.899 Other long term (current) drug therapy; Z79.84 Long term (current) use of oral hypoglycemic drugs; R06.02 Shortness of breath; M46.82 Other specified inflammatory spondylopathies, cervical region; E78.5 Hyperlipidemia, unspecified; I49.3 Ventricular premature depolarization; F32.9 Major depressive disorder, single episode, unspecified; F41.9 Anxiety disorder, unspecified; E66.01 Morbid (severe) obesity due to excess calories; Z68.42 Body mass index [BMI] 45.0-49.9, adult; Z71.3 Dietary counseling and surveillance
CPT/HCPCS: 36415; 71046; 80048; 80061; 83036; 83735; 84443; 84484; 85025; 85027; 85610; 85730; 93005; 93017; 93350; 96372; 96374; 99218; 99285; J7040; Q9957; A4216; C8928; G0378

== ENCOUNTER → 2019-01-29 16:05 | Outpatient (CLI) | payer OTHER, SELFPAY ==
[2019-01-26 15:36] VITALS: BMI 49.6
[2019-01-29 17:39] LABS: D-Dimer Quantitative (DVT/PE) 0.28 FEU/ug/m (0.27-0.49)
[2019-01-29 17:56] LABS: ALB/GLOB Ratio 1.1 RATIO (0.9-2.4); AST(SGOT) 19 U/L (15-37); Alanine Aminotransfer ALT/SGPT 34 U/L (13-56); Albumin, Serum 3.9 g/dL (3.2-5.0); Alkaline Phosphatase 79 U/L (45-117); Anion Gap 7 (5-15); BUN 17 mg/dL (7-18); BUN/Creat Ratio 21.2 RATIO (10-20); Chloride 104 mmol/L (98-107); EST Glomerular Filtration Rate 78 mL/min (>60); Est Glom Filt Rate - Afr Amer 95 mL/min (>60); Globulin 3.7 g/dL (2.2-4.2); Glucose 99 mg/dL (74-106); Potassium 3.8 mmol/L (3.5-5.1); Protein, Total 7.6 g/dL (6.4-8.2); Sodium Level 141 mmol/L (136-145)
== END ==
PROVIDERS: Family Provider Family Medicine; PCP Family Medicine; Visit Provider Family Medicine
DX: R07.89 Other chest pain (principal)
CPT/HCPCS: 36415; 80053; 85379; 86140

== ENCOUNTER → 2019-02-09 15:46 | Outpatient (CLI) | payer OTHER, SELFPAY ==
[2019-01-26 15:36] VITALS: BMI 49.6
--- NOTE | 2019-02-09 15:48 | CT_ITS ---
STUDY: CT CHEST WITHOUT CONTRAST REASON FOR EXAM: Female, 58 years old. Atypical chest pain. RADIATION DOSAGE (If Supplied By Facility): CTDIvol = ( 20.15 ) mGy, DLP = ( 760.27 ) mGycm TECHNIQUE: Transaxial imaging was performed without the administration of intravenous contrast material. Individualized dose optimization techniques were used for this CT. COMPARISON: None. FINDINGS: The lungs are normal. There is no demonstrated pleural abnormality. There are calcifications of the coronary arteries. There is a small hiatal hernia. Normal hilar regions. Normal unenhanced pulmonary arteries. Normal aorta arch and descending thoracic aorta. There are multi-level degenerative changes of the thoracic spine. The limited images of the abdomen demonstrate a well-circumscribed 1.7 x 1.5 cm low-attenuation focus within the left hepatic lobe. CT/Chest without Contrast IMPRESSION: Atherosclerosis. Small hiatal hernia. Indeterminant 1.5 x 1.7 cm low-attenuation focus within the left hepatic lobe, consider ultrasound for further characterization. Degenerative changes of the thoracic spine. Electronically Signed: Alannah Kumar MD at 18:53 EDT Tel , Service support ,
== END ==
PROVIDERS: Family Provider Family Medicine; PCP Family Medicine; Referring Provider Family Medicine; Visit Provider Family Medicine
DX: R07.89 Other chest pain (principal); R06.02 Shortness of breath
CPT/HCPCS: 71250

== ENCOUNTER → 2019-03-06 08:26 | Outpatient (CLI) | payer OTHER, SELFPAY ==
[2019-01-26 15:36] VITALS: BMI 49.6
--- NOTE | 2019-03-06 08:29 | US_ITS ---
STUDY: ABDOMINAL ULTRASOUND - RIGHT UPPER QUADRANT REASON FOR VISIT: Female, 58 years old. Left liver cyst seen on CT scan of 02/09/2019 TECHNIQUE: Ultrasound evaluation of the right upper quadrant was performed with real-time and static mckay-scale imaging. TECHNICAL QUALITY: Adequate. COMPARISON: CT chest 02/09/2019.. FINDINGS: Liver: The liver measures 20 cm. Mild hepatomegaly with evidence of hepatic steatosis. The bile ducts are within normal limits. There is hepatic color flow. The direction of portal flow is hepatopetal. There is no demonstrated mass lesion. Simple cyst of the left liver measuring 18 mm. Concordant with that seen on CT scan. Gallbladder: Normal distended gallbladder. The gallbladder wall measures 2.8 mm. There is a negative sonographic Giles's sign. There is no pericholecystic fluid. There are no gallstones. Common Bile Duct (C.B.D.): The common bile duct measures 3.0 mm. Pancreas: Echogenic, evidence of mild fatty atrophy, nondilated pancreatic duct There is no demonstrated pancreatic mass or cyst. Right Kidney: Normal size of the right kidney. The right kidney measures 12.1 cm. Normal renal cortex. The right cortex measures 1.8 cm. There is no demonstrated renal mass or cyst. There is no right hydronephrosis. US/Abdomen Limited IMPRESSION: Hepatic steatosis with mild hepatomegaly. Simple/benign cyst of the left liver. Electronically Signed: Haris Soto MD at 11:47 EDT Tel , Service support ,
== END ==
PROVIDERS: Family Provider Family Medicine; PCP Family Medicine; Referring Provider Family Medicine; Visit Provider Family Medicine
DX: K76.89 Other specified diseases of liver (principal)
CPT/HCPCS: 76705

== ENCOUNTER → 2019-05-15 08:01 | Outpatient (CLI) | payer OTHER, SELFPAY ==
[2019-01-26 15:36] VITALS: BMI 49.6
[2019-05-15 10:48] LABS: Anion Gap 10 (5-15); BUN 12 mg/dL (7-18); BUN/Creat Ratio 18.5 RATIO (10-20); Calcium,Total 8.6 mg/dL (8.5-10.1); Chloride 103 mmol/L (98-107); Creatinine, Serum 0.65 mg/dL (0.55-1.02); EST Glomerular Filtration Rate 99 mL/min (>60); Est Glom Filt Rate - Afr Amer 120 mL/min (>60); Glucose 139 mg/dL (74-106); Sodium Level 142 mmol/L (136-145)
[2019-05-15 11:00] LABS: Microalbumin,Random Urine 6.1 mg/L (NO RANGE EST.); Microalbumin:Creatinine Ratio 12.3 mg/g CRE (<30 mg/g CRE)
== END ==
PROVIDERS: Family Provider Family Medicine; PCP Family Medicine; Referring Provider Family Medicine; Visit Provider Family Medicine
DX: I10 Essential (primary) hypertension (principal)
CPT/HCPCS: 36415; 80048; 82043; 82570

== ENCOUNTER → 2019-08-27 08:00 | Outpatient (CLI) | payer OTHER, SELFPAY ==
[2019-01-26 15:36] VITALS: BMI 49.6
--- NOTE | 2019-08-27 08:03 | BI_ITS ---
MAMMOGRAPHY - BILATERAL SCREENING REASON FOR EXAM: Female, 58 years old. Routine annual screening examination. PERTINENT HISTORY: Non-contributory. TECHNIQUE: Digital bilateral breast massimo (3D mammographic acquisition) in the CC and MLO projections. 2-D mediolateral oblique (MLO) and craniocaudad (CC) views of both breasts were obtained. CAD: Full Field Digital Mammography with Computer Added Detection was performed. COMPARISON: Comparison is made with prior study dated August 21, 2018 and August 29, 2018. FINDINGS: Breast Composition: The breasts are almost entirely fatty. There are no dominant masses or suspicious calcifications. No other significant abnormalities are identified. There has been no significant change since the prior study. BI/SCREEN MAMM (CAD) W/MASSIMO BILAT IMPRESSION: Stable bilateral screening mammogram. Yearly follow-up mammogram recommended. (A) ASSESSMENT CATEGORY: BIRADS Category 1: Negative. A letter regarding these results will be sent to the patient by the facility within 30 days. Approximately 10% of breast cancers are not detected by mammography. A normal mammogram should not delay biopsy of a clinically suspicious abnormality. [id number] Electronically Signed: Jonh Young, at 10:59 EDT , Service support ,
== END ==
PROVIDERS: Family Provider Family Medicine; PCP Family Medicine; Referring Provider Nurse Practitioner Women's Health; Visit Provider Nurse Practitioner Women's Health
DX: Z12.31 Encounter for screening mammogram for malignant neoplasm of breast (principal)
CPT/HCPCS: 77063; 77067

== ENCOUNTER → 2020-04-09 12:08 | Outpatient (CLI) | payer OTHER, SELFPAY ==
[2019-08-27 08:30] VITALS: BMI 49.6
[2020-04-09 15:29] LABS: Absolute Lymphocyte Count 2.33 X10^3/uL (0.83-4.51); Absolute Neutrophil Count 8.1 X10^3/uL (2.0-7.7); Basophil# 0.03 X10^3/uL; Basophil% 0.3 % (0-1); Eosinophil# 0.18 X10^3/uL; Eosinophils% 1.6 % (0-5); Hematocrit 40.6 % (37-47); Hemoglobin 12.8 g/dL (12.0-15.0); Lymphocyte # 2.33 X10^3/ul (4.0); Lymphocyte % 20.5 % (19-41); Mean Corp Hgb Conc 31.5 g/dL (32-36); Mean Corpuscular Hgb 28.1 pg (27.0-32.0); Mean Corpuscular Volume 89.2 fL (81-99); Mean Platelet Vol. 10.3 fl (6.2-12.0); Monocyte# 0.75 X10^3/uL; Monocyte% 6.6 % (0-10); NRBC Flagged by Analyzer 0 % (0-5); Neutrophil # 8.06 X10^3/uL (2.7-7.7); Neutrophil % 70.6 % (47-70); Platelet Count 260 K/mm3 (150-450); RBC Distribution Width CV 12.9 % (11.6-14.6); RBC Distribution Width SD 41.8 fl (35.1-43.9); Red Blood Count 4.55 M/mm3 (4.2-5.4); White Blood Count 11.4 K/mm3 (4.4-11.0)
[2020-04-09 15:57] LABS: Anion Gap 5 (5-15); BUN 16 mg/dL (7-18); BUN/Creat Ratio 21.4 RATIO (10-20); Chloride 102 mmol/L (98-107); Creatinine, Serum 0.75 mg/dL (0.55-1.02); EST Glomerular Filtration Rate 84 mL/min (>60); Est Glom Filt Rate - Afr Amer 102 mL/min (>60); Glucose 128 mg/dL (74-106); Potassium 3.9 mmol/L (3.5-5.1); Sodium Level 138 mmol/L (136-145); Thyroid Stim Hormone (TSH) 1.23 uIU/mL (0.358-3.74)
== END ==
PROVIDERS: PCP Family Medicine; Referring Provider Family Medicine; Visit Provider Family Medicine
DX: I10 Essential (primary) hypertension (principal)
CPT/HCPCS: 36415; 80048; 84443; 85025

== ENCOUNTER → 2020-09-19 07:57 | Outpatient (CLI) | payer OTHER, SELFPAY ==
[2019-08-27 08:30] VITALS: BMI 49.6
--- NOTE | 2020-09-19 07:58 | BI_ITS ---
MAMMOGRAPHY - BILATERAL SCREENING REASON FOR EXAM: Female, 59 years old. Routine annual screening examination. PERTINENT HISTORY: Non-contributory. TECHNIQUE: Digital bilateral breast massimo (3D mammographic acquisition) in the CC and MLO projections. 2-D mediolateral oblique (MLO) and craniocaudad (CC) views of both breasts were obtained. CAD: Full Field Digital Mammography with Computer Added Detection was performed. COMPARISON: Comparison is made with prior study dated 08/27/2019 and 08/29/2018. FINDINGS: Breast Composition: The breasts are almost entirely fatty. There are no dominant masses or suspicious calcifications. No other significant abnormalities are identified. There has been no significant change since the prior study. BI/SCREEN MAMM (CAD) W/MASSIMO BILAT IMPRESSION: Stable bilateral screening mammogram. Yearly follow-up mammogram recommended. (A) ASSESSMENT CATEGORY: BIRADS Category 1: Negative. A letter regarding these results will be sent to the patient by the facility within 30 days. Approximately 10% of breast cancers are not detected by mammography. A normal mammogram should not delay biopsy of a clinically suspicious abnormality. [id number] Electronically Signed: Jonh Young, at 9:05 EST , Service support ,
== END ==
PROVIDERS: PCP Family Medicine; Referring Provider Nurse Practitioner Women's Health; Visit Provider Nurse Practitioner Women's Health
DX: Z12.31 Encounter for screening mammogram for malignant neoplasm of breast (principal)
CPT/HCPCS: 77063; 77067

== ENCOUNTER → 2020-09-29 11:20 | Outpatient (CLI) | payer OTHER, SELFPAY ==
[2019-08-27 08:30] VITALS: BMI 49.6
[2020-09-29 16:19] LABS: AST(SGOT) 19 U/L (15-37); Alanine Aminotransfer ALT/SGPT 37 U/L (13-56); Alkaline Phosphatase 84 U/L (45-117); Anion Gap 7 (5-15); BUN 15 mg/dL (7-18); BUN/Creat Ratio 21.3 RATIO (10-20); Calcium,Total 8.9 mg/dL (8.5-10.1); Chloride 103 mmol/L (98-107); EST Glomerular Filtration Rate 90 mL/min (>60); Est Glom Filt Rate - Afr Amer 109 mL/min (>60); Globulin 3.9 g/dL (2.2-4.2); Glucose 103 mg/dL (74-106); Protein, Total 7.9 g/dL (6.4-8.2); Sodium Level 138 mmol/L (136-145)
== END ==
PROVIDERS: PCP Family Medicine; Visit Provider Family Medicine
DX: I10 Essential (primary) hypertension (principal)
CPT/HCPCS: 36415; 80053

== ENCOUNTER → 2020-11-05 | Outpatient (CLI) | payer OTHER, SELFPAY ==
[2020-09-29 14:07] VITALS: BMI 49.3
== END | disposition home or self-care (01) ==
LOC: LABSPEC 11:25
PROVIDERS: PCP Family Medicine; Visit Provider Family Medicine
DX: U07.1 COVID-19 (principal)
CPT/HCPCS: 87635; U0003

== ENCOUNTER → 2021-03-25 09:59 | Outpatient (CLI) | payer OTHER, SELFPAY ==
[2020-09-29 14:07] VITALS: BMI 49.3
[2021-03-25 12:21] LABS: Hematocrit 41.5 % (37-47); Hemoglobin 12.9 g/dL (12.0-15.0); Mean Corp Hgb Conc 31.1 g/dL (32-36); Mean Platelet Vol. 10.8 fl (6.2-12.0); Platelet Count 264 K/mm3 (150-450); RBC Distribution Width CV 12.6 % (11.6-14.6); RBC Distribution Width SD 39.8 fl (35.1-43.9); Red Blood Count 4.77 M/mm3 (4.2-5.4); White Blood Count 9.2 K/mm3 (4.4-11.0)
[2021-03-25 13:02] LABS: Microalbumin,Random Urine 38.9 mg/L (NO RANGE EST.); Microalbumin:Creatinine Ratio 29.2 mg/g CRE (<30 mg/g CRE)
[2021-03-25 13:10] LABS: AST(SGOT) 10 U/L (15-37); Alanine Aminotransfer ALT/SGPT 28 U/L (13-56); Albumin, Serum 3.8 g/dL (3.2-5.0); Alkaline Phosphatase 81 U/L (45-117); Anion Gap 5 (5-15); BUN 15 mg/dL (7-18); BUN/Creat Ratio 22.5 RATIO (10-20); Calcium,Total 9.2 mg/dL (8.5-10.1); Chloride 105 mmol/L (98-107); Cholesterol 192 mg/dL (200); Creatinine, Serum 0.67 mg/dL (0.55-1.02); EST Glomerular Filtration Rate 96 mL/min (>60); Est Glom Filt Rate - Afr Amer 116 mL/min (>60); Globulin 3.9 g/dL (2.2-4.2); Glucose 128 mg/dL (74-106); High Density Lipoprotein 49 mg/dL; Potassium 4.1 mmol/L (3.5-5.1); Protein, Total 7.7 g/dL (6.4-8.2); Sodium Level 137 mmol/L (136-145); Triglycerides 172 mg/dL; Very Low Density Lipoprotein 34 mg/dL (5-40)
== END ==
PROVIDERS: PCP Family Medicine; Referring Provider Family Medicine; Visit Provider Family Medicine
DX: M17.0 Bilateral primary osteoarthritis of knee (principal); E88.81 Metabolic syndrome and other insulin resistance; E66.01 Morbid (severe) obesity due to excess calories
CPT/HCPCS: 36415; 80053; 80061; 82043; 82570; 84443; 85027

== ENCOUNTER 2022-01-15 10:18 | Outpatient (CLI) | payer OTHER, SELFPAY ==
[2022-01-15 10:47] LABS: Absolute Lymphocyte Count 1.65 X10^3/uL (0.83-4.51); Absolute Neutrophil Count 5.9 X10^3/uL (2.0-7.7); Basophil# 0.04 X10^3/uL; Basophil% 0.5 % (0-1); Eosinophil# 0.22 X10^3/uL; Eosinophils% 2.6 % (0-5); Hematocrit 39.5 % (37-47); Hemoglobin 13.1 g/dL (12.0-15.0); Lymphocyte # 1.65 X10^3/ul (0.83-4.51); Lymphocyte % 19.8 % (19-41); Mean Corp Hgb Conc 33.2 g/dL (32-36); Mean Corpuscular Hgb 28.8 pg (27.0-32.0); Mean Corpuscular Volume 86.8 fL (81-99); Mean Platelet Vol. 10.1 fl (6.2-12.0); Monocyte# 0.54 X10^3/uL; Monocyte% 6.5 % (0-10); NRBC Flagged by Analyzer 0 % (0-5); Neutrophil # 5.86 X10^3/uL (2.7-7.7); Neutrophil % 70.4 % (47-70); Platelet Count 232 K/mm3 (150-450); RBC Distribution Width CV 12.5 % (11.6-14.6); RBC Distribution Width SD 39.2 fl (35.1-43.9); Red Blood Count 4.55 M/mm3 (4.2-5.4); White Blood Count 8.3 K/mm3 (4.4-11.0)
[2022-01-15 11:03] LABS: ALB/GLOB Ratio 1.1 RATIO (0.9-2.4); AST(SGOT) 13 U/L (15-37); Alanine Aminotransfer ALT/SGPT 25 U/L (13-56); Albumin, Serum 3.7 g/dL (3.2-5.0); Alkaline Phosphatase 74 U/L (45-117); Anion Gap 5 (5-15); BUN 16 mg/dL (7-18); BUN/Creat Ratio 23.5 RATIO (10-20); Calcium,Total 8.5 mg/dL (8.5-10.1); Chloride 104 mmol/L (98-107); Cholesterol 200 mg/dL (200); Creatinine, Serum 0.68 mg/dL (0.55-1.02); EST Glomerular Filtration Rate 93 mL/min (>60); Est Glom Filt Rate - Afr Amer 113 mL/min (>60); Globulin 3.4 g/dL (2.2-4.2); Glucose 136 mg/dL (74-106); High Density Lipoprotein 46 mg/dL; Potassium 4.1 mmol/L (3.5-5.1); Protein, Total 7.1 g/dL (6.4-8.2); Sodium Level 138 mmol/L (136-145); Triglycerides 168 mg/dL; Very Low Density Lipoprotein 34 mg/dL (5-40)
[2022-01-15 11:08] LABS: Hemoglobin A1c 5.7 % (3.8-5.6)
[2022-01-15 11:11] LABS: Microalbumin,Random Urine 39.3 mg/L (NO RANGE EST.); Microalbumin:Creatinine Ratio 53.9 mg/g CRE (<30 mg/g CRE)
== END 2022-01-15 23:59 | disposition home or self-care (01) ==
LOC: MFPLAB 10:18
PROVIDERS: PCP Family Medicine; Visit Provider Family Medicine
DX: G47.33 Obstructive sleep apnea (adult) (pediatric) (principal); E66.01 Morbid (severe) obesity due to excess calories; Z68.41 Body mass index [BMI] 40.0-44.9, adult; E88.81 Metabolic syndrome and other insulin resistance; I10 Essential (primary) hypertension; E78.5 Hyperlipidemia, unspecified
CPT/HCPCS: 36415; 80053; 80061; 82043; 82570; 83036; 85025

== ENCOUNTER 2022-03-02 08:03 | Outpatient (CLI) | payer OTHER, SELFPAY ==
--- NOTE | 2022-03-02 08:06 | BI_ITS ---
MAMMOGRAPHY - BILATERAL SCREENING 3-D TOMOSYNTHESIS REASON FOR EXAM: Female, 61 years old. screening PERTINENT HISTORY: No significant family history. TECHNIQUE: 2-D mammograms and 3-D Tomosynthesis of the breast (s) were performed. CAD was performed. COMPARISON: 09/19/2020 FINDINGS: The breast composition is composed of scattered fibroglandular density. Scattered benign calcifications are seen. No dense spiculated masses or suspicious microcalcifications are identified. No architectural distortion is identified. There is no skin thickening or retraction. There has been no significant change since the prior study. BI/SCRN MAMM (CAD)W/MASSIMO BILAT IMPRESSION: No mammographic signs of malignancy. Routine yearly mammograms recommended. ASSESSMENT CATEGORY: BIRADS Category 1: Negative. A letter regarding these results will be sent to the patient by the facility within 30 days. FOLLOW UP RECOMMENDATION: Yearly follow up mammogram recommended. (A) Approximately 10% of breast cancers are not detected by mammography. A normal mammogram should not delay biopsy of a clinically suspicious abnormality. Electronically Signed: Haris Amador MD at 11:10 EDT ,
== END 2022-03-02 23:59 | disposition home or self-care (01) ==
LOC: OPBI 08:04
PROVIDERS: PCP Family Medicine; Referring Provider Nurse Practitioner Women's Health; Visit Provider Nurse Practitioner Women's Health
DX: Z12.31 Encounter for screening mammogram for malignant neoplasm of breast (principal)
CPT/HCPCS: 77063; 77067

== ENCOUNTER → 2022-07-30 | Outpatient (CLI) | payer OTHER, SELFPAY ==
--- NOTE | 2022-07-30 07:20 | CT_ITS ---
STUDY: CT RIGHT LOWER EXTREMITY WITHOUT CONTRAST REASON FOR EXAM: Right knee osteoarthritis, surgical planning. TECHNIQUE: Transaxial CT imaging of the lower extremity was performed. Coronal and sagittal images were reformatted. Individualized dose optimization techniques were used for this CT. COMPARISON: None. FINDINGS: Knee: There are marginal osteophytes and joint space narrowing of the medial femorotibial compartment (coronal reconstruction 38). There are marginal osteophytes and preservation of joint space of the lateral femorotibial compartment. There are marginal osteophytes and joint space narrowing of the patellofemoral compartment (sagittal reconstruction 38). There is a small joint effusion. Hip: There is joint space narrowing of the right hip (coronal reconstruction 67). There is a bone island in the right ilium (coronal reconstruction 65-67). There are calcified uterine fibroids. Ankle: There is joint space narrowing of the anterior aspect of the tibiotalar articulation (sagittal reconstruction 32). Normal posterior subtalar, talonavicular and calcaneocuboid articulations. There are small ossifications in the Achilles tendon insertion (sagittal reconstructions 34-36). There is a small plantar calcaneal enthesophyte.. CT/Extremity Lower without Contra IMPRESSION: Right knee osteoarthritis. Electronically Signed: Liborio Yadav MD at 14:59 EDT ,
== END | disposition home or self-care (01) ==
PROVIDERS: PCP Family Medicine; Referring Provider Specialist; Visit Provider Specialist
DX: M21.161 Varus deformity, not elsewhere classified, right knee (principal)
CPT/HCPCS: 73700

== ENCOUNTER 2022-08-11 12:32 | Observation (INO) | payer OTHER, SELFPAY ==
--- NOTE | 2022-07-26 12:57 | HP.PCM_ITS ---
History and Physical History and Physical [facility] Patient Name: Chiqui Wallace : 1960 From:? KEERTHI LOPEZ PA-C? DATE OF SURGERY:? 08/11/2022 SCHEDULED PROCEDURE:? ?right total knee arthroplasty HISTORY OF PRESENT ILLNESS: Preoperative history and physical exam was performed on July 26, 2022.? This is a 61-year-old female who is had ongoing pain for years in bilateral knees.? The right has been worse in the left.? Patient states her pain can reach as high as a 9/10.? She has stiffness and loss of range of motion.? Her pain as being constant, aching, sharp, stabbing, sore.? Pain is increased with going up and down stairs, sitting, and walking.? She has been through previous portal therapy and physical therapy which was slightly helpful.? She has difficulty with activities of daily living including housework and shopping.? She needs to walk with a shopping cart due to the pain.? She feels unsafe going up and down hills without a cane.? She has required the use of a cane for ambulatory assistance.? She has tried previous brace with no relief.? Patient has tried rest, ice, heat, elevation with minimal relief.? She has been through physical therapy and home exercises with minimal relief.? She has tried meloxicam and Tylenol with minimal relief.? She has been through weight loss program.? She has also tried previous corticosteroid injections with a primary care physician with only minimal relief.? After failing conservative measures and discussing treatment options with Dr. Juan Luis oLpez, the patient does wish to proceed with a right total knee arthroplasty.? We are obtaining surgical clearance from the primary care physician Tono Flowers.? Patient has medical history pertinent for hypertension, type 2 diabetes mellitus, anxiety, and sleep apnea with use of CPAP machine.? Currently she denies any recent chest pain, shortness of breath, fevers chills or recent infections.?? REVIEW OF SYSTEMS: Review Of Systems: Constitutional: Reports anxiety, but denies anorexia, change in appetite, fever and weight change,hard of hearing, and vision problems. Cardiovasular: Reports chest pain, but denies heart murmur, irregular heartbeat and peripheral vascular disease. Respiratory: Denies asthma, cough, pneumonia, sleep apnea, shortness of breath, tuberculosis and wheezing. Gastrointestinal: Denies constipation, diarrhea, heartburn, nausea, bloody stools and vomiting, and difficulty swallowing. Genitourinary: Denies incontinence. Musculoskeletal: Reports leg swelling and pain, but denies trouble walking and weakness? Skin: Denies Raynaud's, history of shingles and tattoo. Neurological: Reports dizziness and numbness/tingling but denies ambulatory dysfunction and tremor. Psychiatric: Reports anxiety, depression and insomnia, but denies mental illness and stress. Hematologic/Lymphatic: Denies anemia, bleeding/bruising tendency and past transfusion. Reviewed, no changes. PAST MEDICAL HISTORY: Advance Care Plan: Other Directive, POA Effective Date: 05/20/2022 Other Directive, LIVING WILL Effective Date: 05/20/2022 Past Medical History: Medical Problems: High Blood Pressure, Diabetes, Anxiety, Sleep Apnea Accidents: Fracture - 2003 right foot Surgical Hx: RT achilles tendon bone spur - (2016) Anesthesia Complications: None Assistive Devices: Glasses, Cpap Reviewed and updated. SOCIAL HISTORY: Social History: Marital: .Occupation: Sales.Work Status: Currently Working - [employer] Experience.Hand Dominance: Right-handed. Personal Habits:? Cigarette Use: Former.Smokeless Tobacco: Never Used Smokeless Tobacco.E-Cigarette Use: Never used.Alcohol: Occasionally.Drug Use: Denies Use.Enjoy Exercising: Exercises 1-3 x/month. Reviewed, no changes. VITALS: Ht: 65 Wt: 275lb Wt k.740 BMI: 45.8 BP: 138/84 Pulse: 52 Resp: 20 T: 97.5 T: 36.4C Pain Level: 4 O2SatR: 96 ALLERGIES: PCN - rash Norgesic? MEDICATIONS: Meloxicam 7.5 mg 1 by mouth twice a day, Hydrochlorothiazide 25 mg 1 PO qd, Sertraline HCL 50 mg 1 by mouth every day, Metoprolol Succinate ER 100 mg daily, Lisinopril 10 mg 1 by mouth every day, Metformin HCL 500 mg daily, Multivitamins? daily, Probiotic? daily, Vitamin D2 2000 Unit, Vitamin D3 1.25 MG (74677 Ut) PRE-OP EXAM:? General appearance:NORMAL? ? ? Other: Eyes: Conjunctivae and lids: NORMAL? Pupils: ERR Ears, Nose, Mouth, and Throat: NORMAL? Other: Inspection of lips, teeth and gums: NORMAL? ?Other: Neck: Examination of neck: no masses noted. Respiratory: Assessment of respiratory effort: NORMAL? ?Other: ?Auscultation of lungs: clear to auscultation no wheezes, rhonchi or rales. Cardiovascular:? Auscultation of heart: regular rate and rhythm, no murmurs, gallops or rubs. PHYSICAL EXAMINATION: Patient does walk with an antalgic gait.? Right knee is without erythema or signs of infection.? She has tenderness to palpation along the medial joint line.? Range of motion: Lacks 20 full extension to 95 flexion.? Stable to varus/valgus stress test, stable to anterior/posterior drawer exam.? Sensation intact to light touch. IMAGING STUDIES: Previous x-rays of the right knee reveal joint space narrowing, varus alignment, subchondral sclerosis, osteophyte formation consistent with severe stage IV osteoarthritis with medial compartment bony erosions. IMPRESSION: 1.? Severe right knee osteoarthritis 2.? Severe left knee osteoarthritis 3.? Hypertension 4.? Type 2 diabetes mellitus 5.? Anxiety 6.? Sleep apnea with use of CPAP 7.? Morbid obesity PLAN: Dr. Juan Luis Lopez did discuss and review with the patient all treatment options including surgical versus nonsurgical options.? Patient does wish to proceed with the above-stated procedure.? Potential risks, benefits, and complications of the procedure were discussed in detail including but not limited to , infection, nerve and blood vessel damage, persistent pain, numbness, tingling, paresthesias, blood clot, pulmonary embolism, and requirement for possible further surgery.? The patient expressed full understanding and has no further questions for the doctor.? Patient does agree to proceed with the above-stated procedure and has signed the surgery consent form. We discussed the current risks associated with COVID 19.? This does include the risk of exposure while in the hospital.? Patient was reassured local hospitals have low infection rates and are taking all necessary precautions to avoid exposure to patients.? In addition, we discussed strategies that can be used to help limit exposure including those that limit the patient's time in the hospital.? Also using strategies to limit the patient's need for continued inpatient services after being discharged from the hospital.? Patient was notified that we will need to comply with any screening or testing the hospital wishes to perform or that surgery may be delayed for any positive results. This dictation was created using voice recognition software. Phonetic and/or grammatical errors may exist. ___? I have re-examined the patient.? There are no clinical changes since date of exam. ___? See progress notes for changes. ___? Dictated on admission Date: ? ? ?Time: Signature:
--- NOTE | 2022-07-30 07:21 | EKG12_ITS ---
Test Reason : PRE OP Blood Pressure : / mmHG Vent. Rate : 058 BPM Atrial Rate : 058 BPM P-R Int : 166 ms QRS Dur : 094 ms QT Int : 436 ms P-R-T Axes : 057 057 059 degrees QTc Int : 428 ms Sinus bradycardia Otherwise normal ECG Confirmed by VIVI HALE, MARIO ([id number]), editorial intern RITU FITZPATRICK ([id number]) on 07/30/2022 12:41:21 PM Referred By: Juan Luis Lopez Confirmed By:MARIO TRINIDAD MD
[2022-07-30 07:54] LABS: Absolute Lymphocyte Count 2.09 X10^3/uL (0.83-4.51); Absolute Neutrophil Count 4.9 X10^3/uL (2.0-7.7); Basophil# 0.03 X10^3/uL; Basophil% 0.4 % (0-1); Eosinophil# 0.18 X10^3/uL; Eosinophils% 2.3 % (0-5); Hemoglobin 12.8 g/dL (12.0-15.0); Lymphocyte # 2.09 X10^3/ul (0.83-4.51); Lymphocyte % 27.2 % (19-41); Mean Corpuscular Hgb 28.2 pg (27.0-32.0); Mean Corpuscular Volume 88.1 fL (81-99); Mean Platelet Vol. 9.9 fl (6.2-12.0); Monocyte% 6.5 % (0-10); NRBC Flagged by Analyzer 0 % (0-5); Neutrophil # 4.87 X10^3/uL (2.7-7.7); Neutrophil % 63.3 % (47-70); Platelet Count 252 K/mm3 (150-450); RBC Distribution Width CV 12.4 % (11.6-14.6); RBC Distribution Width SD 40.1 fl (35.1-43.9); Red Blood Count 4.54 M/mm3 (4.2-5.4); White Blood Count 7.7 K/mm3 (4.4-11.0)
[2022-07-30 08:21] LABS: Hemoglobin A1c 5.4 % (3.8-5.6)
[2022-07-30 08:34] LABS: Albumin, Serum 3.7 g/dL (3.2-5.0); Anion Gap 7 (5-15); BUN 20 mg/dL (7-18); BUN/Creat Ratio 30.3 RATIO (10-20); Chloride 103 mmol/L (98-107); Creatinine, Serum 0.66 mg/dL (0.55-1.02); EST Glomerular Filtration Rate 97 mL/min (>60); Est Glom Filt Rate - Afr Amer 117 mL/min (>60); Glucose 118 mg/dL (74-106); Potassium 3.9 mmol/L (3.5-5.1); Sodium Level 140 mmol/L (136-145)
[2022-07-30 08:35] LABS: Magnesium 2.2 mg/dL (1.6-2.6)
--- NOTE | 2022-08-03 10:10 | CASEMGMT ---
AUGUSTO OLIVA Assessment: TC to pt for initial transition planning/care coordination assessment. RN PJ introduced self and role at [facility], pt voices understanding and consents to assessment. Care providers, pharmacy, and demographics verified/updated. Admitting Dx: Rt total knee robotic PCP:Lionel Specialists:ed Lopez Preferred Pharmacy: [facility] Retail Insurance: [employer] Prescription Benefit: yes LW/HPOA: Pt states she has a LW/DPOA and her DPOA is her Abraham Wallace. She is aware that she can bring these documents in to be scanned into the chart day of surgery. LNOK: Abraham Wallace, Living Arrangements: Pt lives with in a two story home with 2 steps to enter with a rail. Pt reports she is I in ADL's and denies concerns at home. Transportation: Pt drives self and denies concerns with transportation. Pt will transport her post surgery. DME/HHC/SNF: Pt has a CPAP, walking stick and standard walker at home. Pt denies hx of HHC or SNF stays. Pt states no concerns with going home at time of dc. Pt has her outpt therapy set up for Aug 16 at [facility]. Pt states no further concerns/needs. CM to follow. Advised pt to ask CM if any further question/concerns/needs arise, voices understanding. Pt Goal: Home with outpt therapy set up Plan: Home with outpt therapy set up
[2022-08-11] VITALS (17 sets, daily range): BP systolic 106–171; BP diastolic 47–87; PULSE 53–79; RESP 16–18; TEMP 36.5–37.2; O2SAT 93–100; BMI 46.5
--- NOTE | 2022-08-11 07:14 | OP.PCM_ITS ---
Report of Operation Date of Procedure: 08/11/22 Pre-Operative Diagnosis: Right knee primary osteoarthritis Post-Operative Diagnosis: Right knee primary osteoarthritis Surgery/Procedure Performed:: Right minimally invasive robotic total knee replacement Description of Surgical Findings:: Stable knee with good patella tracking Surgeon: Juan Luis Lopez brand planner: Tristan Perez Type of Anesthesia: Spinal Special Medications: 2 g Ancef, 1 g TXA at incision, 1 g TXA closure, 10 mg Decadron, joint cocktail (5 mg Duramorph, 30 mL of 0.5% Ropivicaine, 1000 units of epinephrine, 30 mg of Toradol) Specimen's removed: Bony cuts Estimated Blood Loss (mL): 100 Fluids Replaced: 800 ML Description of Procedure: Implants used: 1. Chelsy size 2 triathlon cruciate retaining distal femoral press-fit component 2. [place] size 3 press-fit tritanium tibial baseplate 3. [place] X3 9 mm CS polyethylene 4. [place] X3 32 mm asymmetric patella Brief history operative indications: 61-year-old F with history of right knee osteoarthritis with radiographic findings with loss of joint space, osteophyte formation and subchondral sclerosis. Failed conservative measures as mentioned in the H&P. Discussion of total knee arthroplasty as well as risk and benefits were discussed the patient including but not limited to blood loss, DVTs, PEs, neurovascular damage, general risk of anesthesia including loss of life, and stiffness or instability were discussed with patient. Patient demonstrated understanding and was able to sign informed consent. Procedure: On the date of procedure patient's right lower extremity was marked in the preoperative area. The patient was then taken back to the operating room where the patient was placed on the table in the supine position. All bony prominences were identified a well-padded. Anesthesia assumed control of the C-spine and airway and remained controlled throughout the remainder of the procedure. A tourniquet was placed on the right upper thigh and the leg was prepped in a sterile fashion. The surgeon then scrubbed at this time .Upon reentering the room right lower extremity was draped in a standard orthopedic fashion. A timeout was then called and everyone agreed upon the side, the site, the procedure to be performed, patient's identity and antibiotics given. Esmarch bandage was used to exsanguinate the extremity and the tourniquet was placed up to 250 mmHg with the knee in flexion. A midline skin incision was made and sharp dissection was taken down through skin subcutaneous tissue and fat. The standard medial parapatellar incision was made and the patella was subluxed laterally. An Appropriate deep MCL release was done and the fat pad was resected. Our attention was then directed to the patella. The patella was everted and a flat resection was made. The knee was then flexed up in 2 femoral pins were placed inside the incision and 2 tibial pins were placed outside the incision in the medial tibia bicortically. Once this was completed the 2 checkpoints in the femur and tibia were placed. Knee was then flexed up and the bony landmarks were registered. Once this was completed knee was taken through range of motion and manually stressed allowing us to a plan for an appropriate tibial cut. The robotic arm was brought into the field sterilely and checkpoint and saw were registered. Based on the patient's deformity the tibial cut was made in 2 degrees varus. At this time the tensioner was then placed in the joint and ligament tension was checked at 90 degrees and full extension. Based on the patient's ligamentous tension appropriate adjustments were made to the operative plan and ligament releases were done. Once we were happy with our operative plan with balanced flexion and extension gaps our attention was directed to the femur. The robot was brought into the field sterilely and registered. Posterior condylar cuts, anterior chamfer cuts and anterior cuts were appropriately made for a size 2 femur. When these were completed the saws were switched out in the distal femoral and posterior chamfer cuts were made. Protecting the soft tissue throughout this time. A size 3 tibial base plate was selected. the knee was flexed to 90 degrees and the soft tissues and posterior osteophytes were removed from the joint. 40 cc of the periarticular injection was injected into the posterior medial corner of the joint. The appropriate trials were then placed on the femur and tibia. A trial polyethylene was trialed to ensure proper balancing and stability of the knee. The appropriate tibial internal rotation was then marked with a bovie. Our attention was then directed to the patella. The lug holes were drilled and the patella trial was placed. Patellar tracking was checked and deemed appropriate. Once we were happy lug holes were drilled for the femur and trial components were removed. the tibia was subluxed and pinned into place and the keel was punched and drilled appropriately. Final components were verified and opened, and cement was mixed in a vacuum. Vitaldent Simplex cement was used. The wound was copiously irrigated with normal saline. When the cement was ready the components were impacted into place starting with the tibia, femur and finally cementing the patella. The trial poly component was placed and the knee was placed in full extension. All excess cement was removed in the process. Once the cement had cured the tracking, alignment and balance were verified and a size 9 mm CS polyethylene component was placed. Once the final components were placed a 3-minute dilute Betadine lavage was performed followed by an Irrisept lavage was performed and the wound was copiously irrigated with normal saline solution and the periarticular injection was given. The wound was closed in a layer kebede fashion using #1 vicryl interrupted sutures for the arthrotomy, 2-0 interrupted Vicryl suture for the subcuticular layer and nasir for final skin closure. A sterile compressive dressing was then placed. The patient was then awakened from anesthesia, transferred to the rbirch tree and transferred to the PACU for recovery. Post op plan DVT ppx: ASA 81mg BID, thigh high compression stockings Follow up: in office in 2 weeks for wound check PT: to start POD #0 at hospital, outpatient PT should be arranged. Based on patient's BMI patient be placed on doxycycline 100 mg twice daily for 2 weeks postoperatively as she has an increased risk of infection. My physician billing assistant was a vital part of this case. He was important in appropriate retraction during the case, and protection of soft tissues during bony cuts. His intimate knowledge of the case and my steps aided in safe and expedient completion of the procedure as well as appropriate position of the leg during the case. He was also vital in assisting with closure under my direct supervision. Due to the complexity of this case robotic arm was used to assist in the surgery to improve accuracy and clinical outcomes. Complications No intraoperative complications Admit VTE Documentation VTE Present on Admission: No VTE Mechan Device Prophylaxis: SCD's and Thigh High JAMAL Hose VTE Pharm Prophylaxis ordered?: Yes
[2022-08-11] MEDS: Gabapentin 600 MG Tablet PO (09:49)
[2022-08-11] MEDS: Acetaminophen 500 MG Tablet 1000 MG PO ×3 (09:49→22:08)
[2022-08-11] MEDS: Lactated Ringers 1,000 ML 15 ML IV (10:10)
[2022-08-11 10:26] LABS: Bedside Glucose 114 mg/dL (74-106)
--- NOTE | 2022-08-11 11:15 | KNEE_PTH ---
PATIENT: HANS COREA LOC: [facility] U#:[id number] AGE/SX: 61/F ROOM: MS316 RE08/11/[address]: Dr. Juan Luis Lopez MD : 1960 BED: 1 DIS: 08/12/2022 SPEC #: [id number] RECD: 08/11/22 15:09 STATUS: HOOD REQ #: [id number] SID: 08/11/22 11:[address]: Juan Luis Lopez DEPT: SURGICAL PATHOLOGY RECD BY: Maritza Gonzalez ENTERED: 08/12/22 08:22 SP TYPE: TOTAL KNEE OTHR DR: MD Dr. Esther Tristan Dr., MD Dr. Eric Smith, MD Dr. Kathryn Lee, DO Dr. Nicholas F Kotsonis, MD Tissues: Knee, NOS Procedures: Decalcification bone/plaque Surgery Specimen Level IV HEADER OPERATION: ERAS, total knee replacement robotic arm assist PRE-OP DIAGNOSIS: Right knee primary osteoarthritis TISSUE SUBMITTED: Bone and soft tissue right knee MICROSCOPIC DIAGNOSIS Bone and tissue, right knee, total knee replacement/resection: Pieces of bone with degenerative osteoarthritic changes. Fibroadipose tissue, fibroconnective tissue and reactive synovial tissue. BRUCE:melly 08/18/2022 MICROSCOPIC DESCRIPTION Slides are reviewed. GROSS DESCRIPTION Received is one container designated bone and soft tissue right knee. The specimen consists of multiple fragments of miller-yellow bone measuring in aggregate 17 x 11 x 2 cm. Also in the specimen container are multiple fragments of yellow-white soft tissue measuring in aggregate 5 x 1.5 x 1 cm. A number of bony fragments contain articular surfaces consistent with tibial plateau and femoral condyle and displaying prominent osteophyte formation, eburnation, and bone erosion. Planner/Scheduler sections are submitted in two cassettes as follows: 1 - soft tissue, 2 - bone after decalcification. / AM:melly 08/12/2022 TC:5 CPT: 39144, [id number]
[2022-08-11] MEDS: TXA 1000mg in NS100 100ml (IVPB at Incision) 660 MG IV (12:26)
[2022-08-11] MEDS: TXA 1000mg in NS100 100ml (IVPB at Closure) 660 MG IV (13:28)
[2022-08-11] MEDS: dexAMETHasone 10 MG/ML Vial IV (13:45)
[2022-08-11] MEDS: Lactated Ringers 1,000 ML 999 ML IV (14:21)
--- NOTE | 2022-08-11 14:35 | RAD_ITS ---
STUDY: X-RAY - RIGHT KNEE REASON FOR EXAM: Female, 61 years old. Post op -- AP and Lateral xray of operative knee in PACU TECHNIQUE: 2 view(s) of the knee. COMPARISON: None. FINDINGS: Normal visualized distal femur. Normal visualized proximal tibia and fibula. Normal proximal tibiofibular articulation. The patient is status post right total knee replacement. There is good alignment. Postoperative soft tissue changes. RAD/Knee 1 or 2 Views IMPRESSION: Status post right total knee replacement. There is good alignment. Postoperative soft tissue changes. Electronically Signed: Jonh Young MD at 15:31 EDT ,
[2022-08-11 15:11] LABS: Bedside Glucose 137 mg/dL (74-106)
[2022-08-11] MEDS: Lactated Ringers 1,000 ML 125 ML IV (15:21)
--- NOTE | 2022-08-11 16:31 | PCM.PN.HOSP ---
Documented by User: NATALI Cottrell 08/11/22 16:43 Subjective Subjective Patient seen and examined. Patient sitting in bed no distress noted. Patient ordering dinner. at bedside. Objective Data Objective Data Vital Signs: Vital Signs Temp Pulse Resp BP Pulse Ox O2 Del Method O2 Flow Rate 98.1 F 66 16 126/60 H 93 Room Air 4 08/11/22 16:03 08/11/22 16:03 08/11/22 16:03 08/11/22 16:03 08/11/22 16:03 08/11/22 16:03 08/11/22 15:22 Oxygen Flow Rate (L/min) 4 Oxygen Delivery Method Room Air Weight: 279 lb 15.793 oz Body Mass Index (BMI) 46.5 Intake & Output: Intake and Output for Last 24 Hours 08/09/22 08/10/22 08/11/22 23:59 23:59 23:59 Intake Total 2237 / 2237 Balance 2237 / 2237 Lab / Micro Data Result Diagrams: 07/30/22 07:14 07/30/22 07:14 Labs: Laboratory Results - last 24 hr 08/11/22 09:42: POC Glucose 114 H 08/11/22 14:27: POC Glucose 137 H Micro: Microbiology 07/30/22 07:14 Swab (Method) Nasal Screen MRSA/MSSA - Final Radiography Diagnostic Testing: Radiology Impression Knee X-Ray 08/11/22 14:35 IMPRESSION: Status post right total knee replacement. There is good alignment. Postoperative soft tissue changes. Electronically Signed: Jonh Young MD at 15:31 EDT , Physical Exam Const alert, oriented x3 and no apparent distress HEENT head/scalp atraumatic and moist oral mucous membranes Head and Scalp: normocephalic Eyes conjunctivae normal and no scleral icterus Neck no lymphadenopathy and supple Resp normal respiratory effort, normal air movement and clear to auscultation bilaterally Effort and Inspection: able to speak in complete sentences and symmetric chest movement Cardio regular rate, regular rhythm, S1 normal heart sound and S2 normal heart sound GI normal to inspection, nondistended, normoactive bowel sounds, soft to palpation and non-tender Extremity normal capillary refill Peripheral Pulses: Yes pulses 2+ throughout Right Lower Extremity: knee joint inspection, palpation (Nontender), ROM (Limited) and neurovascular exam (Intact) Neuro oriented x3, moves all extremities, no focal motor deficits and no sensory deficits noted Speech: speech normal Psych affect normal Assessment & Plan Assessment/Plan (1) Diabetes mellitus type II: (2) Hypertension: (3) Dyslipidemia: PLAN: Plan 1. Hypertension -Continue metoprolol, lisinopril, hydrochlorothiazide -Vital signs per protocol -Vital signs currently stable 2. Diabetes mellitus type 2 -Continue metformin -ACHS blood sugars with sliding scale insulin ordered 3. Anxiety -Continue sertraline 4. Obstructive sleep apnea -CPAP ordered, patient has home CPAP at bedside 5. Right total knee replacement -Pain management per orthopedic surgeon -PT and OT to eval and treat -Cefazolin x2 doses DVT prophylaxis-SCDs This patient was seen by Collette York NP-C under the supervision of Dr. Metz. 13 minutes spent in clinical coordination of patient's plan of care. Documented by User: Dr. Tono Metz DO 08/11/22 16:56 Objective Data Lab / Micro Data Result Diagrams: 07/30/22 07:14 07/30/22 07:14 Assessment & Plan Assessment/Plan (1) Diabetes mellitus type II: (2) Hypertension: (3) Dyslipidemia: Charges/Coding Addendum Addendum: Patient seen and examined independently. Data and vitals reviewed. I agree with the above note by the nurse practitioner. Patient is feeling well after her right knee replacement today. Denies any current complaints. No acute distress and afebrile. Heart rate regular rate and rhythm plus S1-S2 without murmurs, rubs. Lungs are clear to auscultation bilaterally. Assessment and plan 1. Hypertension: Stable. Continue with home meds metoprolol, lisinopril and HCTZ. 2. Diabetes mellitus type 2: Uty-[id number]-[id number]. Patient is on metformin chronically. Patient will be also on a sliding scale insulin as needed. 3. She right total knee replacement: Management per orthopedics 4. VTE prophylaxis: Per orthopedics. Patient on aspirin 81 mg twice daily. Thank you for the consult. The hospital service will continue to follow along during this patient's hospitalization. Visit Charges Inpatient E&M: 98845 Subs Hosp L2
[2022-08-11] MEDS: metFORMIN HCl 500 MG Tablet 750 MG PO (18:21)
[2022-08-11] MEDS: Famotidine 20 MG Tablet PO (18:22)
[2022-08-11] MEDS: Multivitamins,Therapeutic Tablet 1 TABLET PO (18:23)
[2022-08-11] MEDS: hydroCHLOROthiazide 25 MG Tablet PO (18:23)
[2022-08-11] MEDS: Ensure Surgery 237 ML LIQUID PO (18:26)
[2022-08-11] MEDS: Sertraline 100 MG Tablet PO (18:26)
[2022-08-11] MEDS: Cefazolin 1 GM/50 ML BAG IV (22:02)
[2022-08-11] MEDS: Aspirin 81 MG TAB.CHEW PO (22:06)
[2022-08-11] MEDS: Metoprolol Tartrate 50 MG Tablet PO (22:08)
[2022-08-11] MEDS: Senna/Docusate Sodium 1 Tablet 2 TABLET PO (22:08)
[2022-08-11] MEDS: Lisinopril 20 MG Tablet PO (22:09)
[2022-08-11 22:36] LABS: Bedside Glucose 178 mg/dL (74-106)
[2022-08-12] VITALS (9 sets, daily range): BP systolic 158–189; BP diastolic 64–77; PULSE 57–64; RESP 16–18; TEMP 36.6–37.1; O2SAT 97–100
[2022-08-12] MEDS: Cefazolin 1 GM/50 ML BAG IV (03:50)
--- NOTE | 2022-08-12 05:12 | CPS ---
Pt has own CPAP. It is in room and was set up for last evening around 9 Pm.
[2022-08-12] MEDS: Acetaminophen 500 MG Tablet 1000 MG PO ×2 (05:23→13:17)
--- NOTE | 2022-08-12 06:38 | NURSING ---
Patient refused blood sugar checks and insulin because she does not take insulin or blood sugars at home, only oral meds.
[2022-08-12 06:49] LABS: Hematocrit 35.1 % (37-47); Hemoglobin 11.7 g/dL (12.0-15.0); Mean Corp Hgb Conc 33.3 g/dL (32-36); Mean Corpuscular Hgb 28.6 pg (27.0-32.0); Mean Corpuscular Volume 85.8 fL (81-99); Mean Platelet Vol. 10.1 fl (6.2-12.0); Platelet Count 227 K/mm3 (150-450); RBC Distribution Width CV 12.2 % (11.6-14.6); RBC Distribution Width SD 38.3 fl (35.1-43.9); Red Blood Count 4.09 M/mm3 (4.2-5.4)
[2022-08-12 07:09] LABS: Anion Gap 10 (5-15); BUN 15 mg/dL (7-18); BUN/Creat Ratio 19.6 RATIO (10-20); Calcium,Total 8.6 mg/dL (8.5-10.1); Chloride 102 mmol/L (98-107); Creatinine, Serum 0.77 mg/dL (0.55-1.02); EST Glomerular Filtration Rate 81 mL/min (>60); Est Glom Filt Rate - Afr Amer 98 mL/min (>60); Estimated Creatinine Clearance 69.04 ml/min; Glucose 146 mg/dL (74-106); Potassium 3.9 mmol/L (3.5-5.1); Sodium Level 137 mmol/L (136-145)
[2022-08-12] MEDS: Senna/Docusate Sodium 1 Tablet 2 TABLET PO (10:23)
[2022-08-12] MEDS: Metoprolol Tartrate 100 MG Tablet PO (10:23)
[2022-08-12] MEDS: hydroCHLOROthiazide 25 MG Tablet PO (10:23)
[2022-08-12] MEDS: Doxycycline 100 MG CAPSULE PO (10:23)
[2022-08-12] MEDS: Aspirin 81 MG TAB.CHEW PO (10:23)
[2022-08-12] MEDS: Lisinopril 20 MG Tablet PO (10:24)
[2022-08-12] MEDS: Famotidine 20 MG Tablet PO (10:24)
[2022-08-12] MEDS: Multivitamins,Therapeutic Tablet 1 TABLET PO (10:24)
[2022-08-12] MEDS: Sertraline 100 MG Tablet PO (10:24)
[2022-08-12] MEDS: metFORMIN HCl 500 MG Tablet 750 MG PO (10:25)
[2022-08-12] MEDS: oxyCODONE 5 MG Tablet PO ×2 (10:25→16:00)
--- NOTE | 2022-08-12 10:58 | PN.ORTHO_ITS ---
Subjective Subjective The patient was sitting in bedside chair upon examination. Patient denies any chest pain, shortness of breath, dizziness, lightheadedness, nausea or vomiting, or calf pain. Pain is controlled on medications. No adverse overnight events. Overall patient appears to be doing well. She did yesterday have an episode when she was walking when she felt like the knee buckled. This could have been related to the block. Today she has not had that experience. Discussed with physical therapy and they are okay with her being discharged home today. Objective Data Objective Data Vital Signs: Vital Signs Temp Pulse Resp BP Pulse Ox O2 Del Method O2 Flow Rate 98.2 F 64 18 158/68 H 97 Room Air 4 08/12/22 09:45 08/12/22 10:23 08/12/22 09:45 08/12/22 10:23 08/12/22 09:45 08/12/22 09:45 08/12/22 03:47 Oxygen Flow Rate (L/min) 4 Oxygen Delivery Method Room Air Weight: 127 kg Body Mass Index (BMI) 46.5 Intake & Output: Intake and Output for Last 24 Hours 08/10/22 08/11/22 08/12/22 23:59 23:59 23:59 Intake Total 3687 / 4187 950 / 950 Output Total 0 / 1000 1000 / 1000 Balance 3687 / 3187 -50 / -50 Lab / Micro Data Result Diagrams: 08/12/22 05:38 08/12/22 05:38 Labs: Laboratory Results - last 24 hr 08/11/22 14:27: POC Glucose 137 H 08/11/22 22:04: POC Glucose 178 H 08/12/22 05:38: WBC 17.0 H, RBC 4.09 L, Hgb 11.7 L, Hct 35.1 L, MCV 85.8, MCH 28.6, MCHC 33.3, RDW Std Deviation 38.3, RDW Coeff of Ludwig 12.2, Plt Count 227, MPV 10.1 08/12/22 05:38: Sodium 137, Potassium 3.9, Chloride 102, Carbon Dioxide 25.0, Anion Gap 10, BUN 15, Creatinine 0.77, Estim Creat Clear Calc 69.04, Est GFR (MDRD) Af Amer 98, Est GFR (MDRD) Non-Af 81, BUN/Creatinine Ratio 19.6, Glucose 146 H, Calcium 8.6 Micro: Microbiology 07/30/22 07:14 Swab (Method) Nasal Screen MRSA/MSSA - Final Radiography Diagnostic Testing: Radiology Impression Knee X-Ray 08/11/22 14:35 IMPRESSION: Status post right total knee replacement. There is good alignment. Postoperative soft tissue changes. Electronically Signed: Jonh Young MD at 15:31 EDT , Physical Exam Narrative Vital signs stable and afebrile. SCDs and JAMAL hose are in place bilaterally. Frnady wrap was removed by myself today. Patient is able to plantarflex and dorsiflex actively. Sensation is intact to light touch to saphenous, sural, superficial and deep peroneal, and tibial distribution. Dressing is clean dry and intact. Negative Homans bilaterally, negative signs and symptoms of DVT. Const alert, oriented x3 and no apparent distress Assessment & Plan Assessment/Plan (1) Status post total right knee replacement: PLAN: 1. S/P right total knee arthroplasty POD #1 2. Continue Pain Medications: Tylenol, meloxicam, oxycodone. Do not take any other nonsteroidal anti-inflammatories while using meloxicam/Mobic. 3. DVT Prophylaxis: Take 81 mg aspirin twice daily for 4 weeks postoperatively for DVT prophylaxis. 4. PT/OT: Weightbearing as tolerated with walker 5. H & H: 11.7/35.1, asymptomatic. Postoperative anemia secondary to acute blood loss from surgery without any intra operative complications. 6. Reactive leukocytosis: Currently 17.0, afebrile. Patient did receive Decadron intraoperatively 7. Continue postoperative medical management per medicine: Case was discussed with medicine and they are okay with discharge home today 8. Continue antibiotics: Currently on doxycycline for 2 weeks postoperatively secondary to BMI greater than 40 and increased risk for postoperative infection. I discussed with the patient side effects which could include hypersensitivity to the sunlight and she should take appropriate precautions. Also recommended taking probiotic while on antibiotics. She voiced understanding agreement 9. Encouraged Incentive Spirometry 10. Disposition: Plan will be for discharge home today as long as she tolerates therapy, pain is well controlled. Patient has outpatient physical therapy established. She will follow-up per postop instructions. She would like her medications sent to [facility] pharmacy. Patient will contact her office upon discharge with any concerns or questions. I have reviewed the [place] Automated Rx Reporting System (OARRS) report for this patient for refill pattern and other prescriber involvement as part of the appropriate surveillance for the provision of acute and chronic controlled medications. The report was requested and reviewed on the date of this entry and was considered in the prescribing process. This dictation was created using voice recognition software. Phonetic and/or grammatical errors may exist.
--- NOTE | 2022-08-12 11:03 | DCINST_ITS ---
Discharge Instructions Diet Discharge Diet: No restrictions Activity Discharge Activity: May Not Drive (No driving for 6 weeks postoperatively) May shower in (days): 1 (Please turn dressing away from water. Okay to get wet as long as dressing is intact to skin.) Ice area for (Minutes): 20 (Every 1-2 hours while awake[address] Please place barrier between the skin and ice pack.) Weight Bearing Status: Weight bearing as tolerated (With walker) Keep extremity elevated above heart level: Operative Extremity Dressing / Incision Call your doctor if your incision/area has: Continuous Slow Oozing, Sudden Increased Bleeding, Increased Pain/ Swelling, Increased Redness and Foul Smelling Discharge Call your doctor if you observe: Fever of 101 or Higher, Coldness, Increased Pain, Numbness or Tingling, Change in Color, Shortness of breath, Chest pain, Calf discomfort and Uncontrolled pain Remove Dressing in: 4 days (Okay to remove dressing on August 16, 2022) Additional Dressing/Incision Instructions:: Follow [facility] Post-op Instructions. Once postoperative dressing has been removed only use gentle soap and water over the incision. Do not use any ointments, Neosporin, salves, alcohol pads over the incision for 6 weeks postoperatively. Do not submerge underwater for 6 weeks postoperatively. Continue with JAMAL hose/elastic stockings for 2 weeks postoperatively. May remove at nighttime but needs to be placed back on the leg during the day. Do NOT use alcohol with narcotic pain medication. Do NOT make important decisions while taking narcotic medication. If you have problems with taking your medication (rash, itching, nausea, etc.) call the office at once. Follow Up Care Test Results: Test results from this visit will be discussed in further detail at your follow-up appointment, if applicable. Discharge Plan Admission Admit Date/Time: 08/11/22 12:32 Attending Provider: Juan Luis Lopez Primary Care Provider: Tono Flowers Consulting Providers: Tere Johnston ; Esther Mcdonald ; Esther Burnham ; Baltazar Ruiz ; Rosi Siddiqui Discharge Orders/Prescriptions Prescriptions: New acetaminophen 500 mg Tablet 1,000 mg PO Q8 Qty: 0 0RF Rx Instructions: Do not take more than 3000 mg Tylenol in a 24-hour period. doxycycline monohydrate 100 mg Capsule 100 mg PO BID 13 Days Qty: 26 0RF Rx Instructions: Take for 2 weeks postoperatively aspirin 81 mg Tablet,Chewable 81 mg PO BID 30 Days Qty: 60 0RF Rx Instructions: Take 81 mg aspirin twice daily for 4 weeks postoperatively for DVT prophylaxis. famotidine 20 mg Tablet 20 mg PO DAILY Qty: 30 0RF meloxicam 7.5 mg Tablet 7.5 mg PO BID Qty: 0 0RF Rx Instructions: Do not take any other nonsteroidal anti-inflammatories while using meloxicam/Mobic. oxycodone 5 mg Tablet 5 - 10 mg PO Q4H PRN PRN (Reason: Pain Score 4-10) 5 Days Qty: 60 0RF sennosides-docusate sodium [Stool Softener-Stimulant Laxat] 8.6-50 mg Tablet 2 tab PO BID Qty: 20 0RF Rx Instructions: Postoperative anemia secondary to acute blood loss from surgery without any intra operative complications. Continued sertraline 50 MG tablet 100 mg PO DAILY Label Comments: DEPRESSION TOOK 07/18/15 metoprolol tartrate 100 MG tablet 100 mg PO DAILY Label Comments: BP TOOK 07/18/15 lisinopril 10 MG tablet 20 mg PO BID multivitamin with folic acid 1 TABLET tablet 1 tab PO DAILY Label Comments: SUPPLIMENT metformin 500 MG tablet 750 mg PO DAILY hydrochlorothiazide 25 MG tablet 25 mg PO DAILY Label Comments: TAKE 1 TABLET EVERY DAY metoprolol tartrate 100 mg tablet 50 mg PO QHS ergocalciferol (vitamin D2) [Vitamin D2] 1,250 mcg (50,000 unit) Capsule 1,250 mcg PO QWEEK ascorbic acid (vitamin C) 1,000 mg Capsule, Extended Release 1 cap PO DAILY cholecalciferol (vitamin D3) [Vitamin D3] 125 mcg (5,000 unit) Tablet 125 mcg PO DAILY Probiotic 100 billion cell Capsule 1 cap PO DAILY Discontinued acetaminophen 325 mg Tablet 650 mg PO BID meloxicam 7.5 mg Tablet 7.5 mg PO QHS Referrals / Follow Up: Physical,Therapy [Other] - 08/16/22 1:00 pm Tono Flowers MD [Primary Care Provider] - Tristan Perez PA-C [Med Staff - [facility]] - 08/26/22 2:45 am Disposition Disposition (needs filled in before D/C Order can be placed): Home, Self Care
[2022-08-12] MEDS: Ensure Surgery 237 ML LIQUID PO ×2 (11:22→13:14)
--- NOTE | 2022-08-12 11:26 | CASEMGMT ---
Social Work Per RNCM assessment, pt does have a living will and health care POA naming her Abraham Wallace. Pt is aware documents are not on file at [facility] and she can bring documents in to have them scanned into system. JOJO Barnes
[2022-08-12 11:56] LABS: Bedside Glucose 99 mg/dL (74-106)
--- NOTE | 2022-08-12 12:13 | CASEMGMT ---
AUGUSTO OLIVA NOTE: Pt being discharged today. AUGUSTO OLIVA to room. Introduced self and role. Pt sitting up in recliner chair in room. Pt denies having any discharge/home-going needs. She confirms she still plans to do OP therapy @ [facility], with 1st appt on 08/16. Nicolás BSN AUGUSTO OLIVA
--- NOTE | 2022-08-12 12:59 | PCM.PN.HOSP ---
Subjective Subjective Well overall. She try to get up with therapy yesterday and states her leg felt considerably weak however she did have a nerve block prior to surgery yesterday and we felt that it may be contributed to this. She is yet to get up with therapy again today Objective Data Objective Data Vital Signs: Vital Signs Temp Pulse Resp BP Pulse Ox O2 Del Method O2 Flow Rate 98.2 F 64 18 158/68 H 97 Room Air 4 08/12/22 09:45 08/12/22 10:23 08/12/22 09:45 08/12/22 10:23 08/12/22 09:45 08/12/22 09:45 08/12/22 03:47 Oxygen Flow Rate (L/min) 4 Oxygen Delivery Method Room Air Weight: 127 kg Body Mass Index (BMI) 46.5 Intake & Output: Intake and Output for Last 24 Hours 08/10/22 08/11/22 08/12/22 23:59 23:59 23:59 Intake Total 3687 / 4187 950 / 950 Output Total 0 / 1000 1000 / 1000 Balance 3687 / 3187 -50 / -50 Lab / Micro Data Result Diagrams: 08/12/22 05:38 08/12/22 05:38 Labs: Laboratory Results - last 24 hr 08/11/22 14:27: POC Glucose 137 H 08/11/22 22:04: POC Glucose 178 H 08/12/22 05:38: WBC 17.0 H, RBC 4.09 L, Hgb 11.7 L, Hct 35.1 L, MCV 85.8, MCH 28.6, MCHC 33.3, RDW Std Deviation 38.3, RDW Coeff of Ludwig 12.2, Plt Count 227, MPV 10.1 08/12/22 05:38: Sodium 137, Potassium 3.9, Chloride 102, Carbon Dioxide 25.0, Anion Gap 10, BUN 15, Creatinine 0.77, Estim Creat Clear Calc 69.04, Est GFR (MDRD) Af Amer 98, Est GFR (MDRD) Non-Af 81, BUN/Creatinine Ratio 19.6, Glucose 146 H, Calcium 8.6 08/12/22 11:25: POC Glucose 99 Micro: Microbiology 07/30/22 07:14 Swab (Method) Nasal Screen MRSA/MSSA - Final Radiography Diagnostic Testing: Radiology Impression Knee X-Ray 08/11/22 14:35 IMPRESSION: Status post right total knee replacement. There is good alignment. Postoperative soft tissue changes. Electronically Signed: Jonh Young MD at 15:31 EDT , Physical Exam Const alert, oriented x3, healthy appearing and well nourished Constitutional Narrative: Morbidly obese white female sitting up in a chair at the bedside, appears comfortable nontoxic, talking on the telephone HEENT head/scalp atraumatic and moist oral mucous membranes Head and Scalp: normocephalic Resp normal respiratory effort, no retractions, no use of accessory muscles and clear to auscultation bilaterally Auscultation: Negative for crackles, rales, rhonchi or wheezes Cardio regular rate, regular rhythm, S1 normal heart sound, S2 normal heart sound, no murmurs, no rub, no gallops, no clicks and no JVD GI normal to inspection, nondistended, normoactive bowel sounds, soft to palpation and non-tender Extremity Extremity Narrative: Bilateral lower extremity JAMAL hose in place, right lower extremity with polar ice in place, right extremity edema related to surgery, no cyanosis or clubbing Neuro oriented x3 and no focal motor deficits Speech: speech normal Assessment & Plan Assessment/Plan (1) Status post total right knee replacement: (2) Osteoarthritis: (3) Leukocytosis: (4) Anemia: PLAN: Plan Assessment: Osteoarthritis status post total knee arthroplasty Leukocytosis Anemia Hypertension DM-2 MIREYA Anxiety Morbid obesity Vitamin D deficiency GERD Plan: -Postop day 1 -DVT prophylaxis per primary service -Anemia likely dilutional related to OR fluids -Leukocytosis likely reactive give -Would recommend outpatient CBC and 1 week for follow-up -PT/OT consultation -Appears medically stable for discharge once cleared by orthopedic surgery Charges/Coding Visit Charges OBSV E&M: 65680 Subsequent observation care L2
== END 2022-08-12 17:06 | disposition home or self-care (01) ==
LOC: SDC 12:33 → MS3 12:33
PROVIDERS: Anesthesiology; Admitting Provider Specialist; PCP Family Medicine; Referring Provider Specialist; Visit Provider Specialist
PROC: 0SRC0JZ Replacement of Right Knee Joint with Synthetic Substitute, Open Approach (ICD-10-PCS; CPT 27447; principal; 2022-08-11 10:45)
DX: M17.0 Bilateral primary osteoarthritis of knee (principal); Z68.42 Body mass index [BMI] 45.0-49.9, adult; E66.01 Morbid (severe) obesity due to excess calories; E11.9 Type 2 diabetes mellitus without complications; I10 Essential (primary) hypertension; Z87.891 Personal history of nicotine dependence; E55.9 Vitamin D deficiency, unspecified; G47.33 Obstructive sleep apnea (adult) (pediatric); K21.9 Gastro-esophageal reflux disease without esophagitis; F41.9 Anxiety disorder, unspecified; E78.5 Hyperlipidemia, unspecified; Z79.899 Other long term (current) drug therapy; Z79.84 Long term (current) use of oral hypoglycemic drugs
CPT/HCPCS: 27447; S2900; 01402; 64447; 36415; 73560; 80048; 82040; 82962; 83036; 83735; 85025; 85027; 87081; 88305; 88311; 93005; 96361; 96365; 96366; 97110; 97116; 97162; 97166; 97530; 97535; 99218; 99251; C1776; J7120; G0378; G0463; J2405; J3475

== ENCOUNTER 2022-09-16 07:54 | Emergency (ER) | payer OTHER, SELFPAY ==
[2022-09-16 07:55] VITALS: BP 214/110; PULSE 63; RESP 18; TEMP 36.4; O2SAT 100; BMI 46.2
[2022-09-16 08:25] LABS: Absolute Neutrophil Count 8.3 X10^3/uL (2.0-7.7); Basophil# 0.03 X10^3/uL; Basophil% 0.3 % (0-1); Eosinophil# 0.05 X10^3/uL; Eosinophils% 0.4 % (0-5); Lymphocyte % 17.6 % (19-41); Mean Corp Hgb Conc 33.3 g/dL (32-36); Mean Corpuscular Hgb 28.4 pg (27.0-32.0); Mean Corpuscular Volume 85.2 fL (81-99); Mean Platelet Vol. 9.8 fl (6.2-12.0); Monocyte# 0.99 X10^3/uL; Monocyte% 8.7 % (0-10); NRBC Flagged by Analyzer 0 % (0-5); Neutrophil # 8.28 X10^3/uL (2.7-7.7); Neutrophil % 72.7 % (47-70); Platelet Count 266 K/mm3 (150-450); RBC Distribution Width CV 12.3 % (11.6-14.6); RBC Distribution Width SD 37.6 fl (35.1-43.9); Red Blood Count 4.58 M/mm3 (4.2-5.4); White Blood Count 11.4 K/mm3 (4.4-11.0)
[2022-09-16 08:33] LABS: Anion Gap 4 (5-15); BUN 10 mg/dL (7-18); BUN/Creat Ratio 15.5 RATIO (10-20); Calcium,Total 9.4 mg/dL (8.5-10.1); Chloride 101 mmol/L (98-107); Creatinine, Serum 0.64 mg/dL (0.55-1.02); EST Glomerular Filtration Rate 99 mL/min (>60); Est Glom Filt Rate - Afr Amer 120 mL/min (>60); Estimated Creatinine Clearance 79.71 ml/min; Glucose 114 mg/dL (74-106); Sodium Level 135 mmol/L (136-145)
--- NOTE | 2022-09-16 09:36 | RAD_ITS ---
STUDY: X-RAY - ACUTE ABDOMINAL SERIES REASON FOR EXAM: Female, 61 years old. Pain TECHNIQUE: Single view of the chest. Supine, and erect view(s) of the abdomen were obtained. COMPARISON: Comparison is made with prior chest radiograph dated 01/26/2019. FINDINGS: The lungs are clear and expanded. Normal size heart. Normal mediastinum and liss. Normal visualized pulmonary arteries. There is atherosclerotic tortuosity of the aortic arch and descending thoracic aorta. There is a non-specific bowel gas pattern. The soft tissue structures of the abdomen and pelvis are unremarkable. There are diffuse degenerative changes of the visualized lumbar spine. RAD/Acute Abdomen Inc Chest IMPRESSION: No acute abnormality is seen. Electronically Signed: Jonh Young MD at 10:23 EDT ,
--- NOTE | 2022-09-16 09:37 | EDS_ITS ---
HPI History of Present Illness Chief Complaint: Abd Pain Informant: patient and spouse/S.O. Narrative Narrative: Patient presents now on her eighth day of intermittent abdominal cramping. She states it is gone across the middle. It waxes and wanes but never completely goes away. She has never had nausea and vomiting. She has been eating and drinking. No fevers chills. No blood in the stool. She did have a total knee done 5 weeks ago. She was on oxycodone for this as well as some other pain meds. She is now down to only 1 oxycodone 3 times a week prior to physical therapy. But her activity was down, her appetite was down, she states she is having small hard stone type bowel movements but is still having small bowel movements. No urinary symptoms. No flank pain. Nothing really makes this better or worse. She states she does not feel sick but her abdomen will cramp. [facility] Medical History Anxiety and depression Arthritis CPAP (continuous positive airway pressure) dependence Diabetes Dietary restriction Former smoker History of echocardiogram History of edema History of stress test Hypertension Post-menopausal Sleep apnea Wears glasses Home Medications lisinopril 10 mg tablet 20 mg PO BID 07/17/15 [History Last Taken 08/11/22 06:45] metoprolol tartrate 100 mg tablet 100 mg PO DAILY HEART 07/17/15 [History Last Taken 08/11/22 06:45] multivitamin with folic acid 400 mcg tablet 1 tab PO DAILY SUPPLEMENT 07/17/15 [History Last Taken 01/26/19] sertraline 50 mg tablet 100 mg PO DAILY DEPRESSION 07/17/15 [History Last Taken 01/26/19] hydrochlorothiazide 25 mg tablet 25 mg PO DAILY water pill 01/26/19 [History Last Taken 01/26/19] metformin 500 mg tablet 750 mg PO DAILY DM 01/26/19 [History Last Taken 01/26/19] Lactobacillus 40-Bifidobact 3-S.thermophilus 100 billion cell capsule (Probiotic) 1 cap PO DAILY probiotic 07/27/22 [History Last Taken Unknown] ascorbic acid (vitamin C) 1,000 mg capsule,extended release 1 cap PO DAILY supplement 07/27/22 [History Last Taken Unknown] cholecalciferol (vitamin D3) 125 mcg (5,000 unit) tablet (Vitamin D3) 125 mcg PO DAILY 07/27/22 [History Last Taken Unknown] ergocalciferol (vitamin D2) 1,250 mcg (50,000 unit) capsule (Vitamin D2) 1,250 mcg PO QWEEK supplement 07/27/22 [History Last Taken Unknown] metoprolol tartrate 100 mg tablet 50 mg PO QHS heart 07/27/22 [History Last Taken Unknown] acetaminophen 500 mg tablet 1,000 mg PO Q8 #0 tabs 08/12/22 [Rx Last Taken Unknown] aspirin 81 mg chewable tablet 81 mg PO BID 30 days #60 tabs 08/12/22 [Rx Last Taken Unknown] doxycycline monohydrate 100 mg capsule 100 mg PO BID 13 days #26 caps 08/12/22 [Rx Last Taken Unknown] famotidine 20 mg tablet 20 mg PO DAILY #30 tabs 08/12/22 [Rx Last Taken Unknown] meloxicam 7.5 mg tablet 7.5 mg PO BID #0 tabs 08/12/22 [Rx Last Taken Unknown] oxycodone 5 mg tablet 5 - 10 mg PO Q4H PRN PRN Pain Score 4-10 5 days #60 tabs 08/12/22 [Rx Last Taken Unknown] sennosides 8.6 mg-docusate sodium 50 mg tablet (Stool Softener-Stimulant Laxative) 2 tab PO BID #20 tabs 08/12/22 [Rx Last Taken Unknown] Allergy/AdvReac Type Severity Reaction Status Date / Time Penicillins Allergy Rash Verified 09/16/22 07:55 Surgical History History of colonoscopy Status post right foot surgery Social History Smoking Status: Never smoker alcohol intake: current details: social substance use type: does not use caffeine: Yes what type of physical activity do you participate in: walking seatbelt use: always do you feel safe at home: Yes additional social history: Bill- Self Employed Patient works at [employer] ROS ED Constitutional Constitutional ED: Denies chills, fever(s) or sweats ENT ENT ED: Denies rhinorrhea or sore throat Cardiovascular Cardiovascular: Denies chest pain, palpitations or racing heartbeat Respiratory/Chest Respiratory/Chest: Reports dyspnea; Denies cough Gastrointestinal Gastrointestinal: Reports abdominal pain and constipation; Denies diarrhea, melena, nausea or vomiting Genitourinary Genitourinary ED: Denies dysuria, hematuria or urinary frequency Musculoskeletal Musculoskeletal: Denies back pain or neck pain Integumentary Denies rash Neurologic Neurologic: Denies paresthesias or weakness Endocrine Endocrinology: Denies polydipsia or polyuria Hematologic/Lymphatic Hematologic/Lymphatic: Denies easy bleeding or easy bruising Allergic/Immunologic Allergic/Immunologic ED: Denies urticaria EXAM Physical Exam Const Vital Signs: 09/16/22 07:55 09/16/22 10:34 Temperature 97.5 F L Temperature Source Temporal Pulse Rate 63 60 Respiratory Rate 18 18 Blood Pressure 214/110 H 181/95 H Blood Pressure Mean 144 123 Pulse Ox 100 97 Oxygen Delivery Method Room Air Room Air Positive well nourished and well developed General Appearance ED: well developed and NAD HEENT Reports moist mucous membranes Eyes General Eye ED: Negative for scleral icterus Chest Wall inspection of chest normal Resp normal respiratory effort and clear to auscultation bilaterally Cardio regular rate, regular rhythm and no murmurs GI normal to inspection, nondistended, normoactive bowel sounds GI Narrative: Abdomen is obese but does not appear to be distended. Bowel sounds do sound normal. I feel no mass or hernia. No prior incisions that she has had no prior abdominal surgeries. There is really no tenderness. She states pressing on it does not hurt but it will intermittently cramp. It is currently feeling a lot better than it did last night and when she came in. Back/Spine no CVA tenderness Extremity normal to inspection Extremity Narrative: Incision in the right knee is looking great. Its healing very well. Neuro Sensorium / Orientation: alert Psych mental status grossly normal Skin no rashes or lesions noted Skin Narrative: Healing wound in right knee MDM MDM MDM Narrative Medical decision making narrative: White count had minimal nonspecific elevation 11.4. Remainder CBC is normal. Electrolytes show no marked abnormalities. LFTs were normal. Imaging did not show acute issues. However, patient has had very hard stools. She has had decreased ambulation and been on narcotics. She is weaning off the narcotics already. She only takes 3 tablets a week now. We talked about increasing hydration and stool softeners, MiraLAX, laxatives and enema. She will manage this at home. Lab Data Attestation: I reviewed the patient's lab results. Labs: Laboratory Results - last 24 hr 09/16/22 09/16/22 09/16/22 08:04 08:04 08:04 WBC 11.4 H RBC 4.58 Hgb 13.0 Hct 39.0 MCV 85.2 MCH 28.4 MCHC 33.3 RDW Std Deviation 37.6 RDW Coeff of Ludwig 12.3 Plt Count 266 MPV 9.8 Immature Gran % (Auto) 0.300 Neut % (Auto) 72.7 H Lymph % (Auto) 17.6 L [place] % (Auto) 8.7 Eos % (Auto) 0.4 Baso % (Auto) 0.3 Absolute Neuts (auto) 8.3 H Absolute Lymphs (auto) 2.00 Nucleated RBC % 0 Sodium 135 L Potassium 4.0 Chloride 101 Carbon Dioxide 30.0 Anion Gap 4 L BUN 10 Creatinine 0.64 Estim Creat Clear Calc 79.71 Est GFR (MDRD) Af Amer 120 Est GFR (MDRD) Non-Af 99 BUN/Creatinine Ratio 15.5 Glucose 114 H Calcium 9.4 Total Bilirubin 0.60 Direct Bilirubin 0.14 AST 13 L ALT 19 Alkaline Phosphatase 79 Total Protein 7.9 Albumin 4.0 Globulin 3.9 Radiography Diagnostic Testing: Clinical Impression(s) from Imaging Studies Acute Abdomen Series 09/16/22 09:36 IMPRESSION: No acute abnormality is seen. Electronically Signed: Jonh Young MD at 10:23 EDT , Abdomen/Pelvis CT 09/16/22 11:23 IMPRESSION: Hepatic cysts. Small hilar hernia. Enlarged calcified fibroid uterus. Electronically Signed: Jonh Young MD at 12:31 EDT , Abdominal series showed noes acute process. CT abdomen showed fibroid uterus and hiatal hernia. No other acute process. Discharge Plan Triage Chief Complaint: Abd Pain ED Provider: Riley Luna Dx/Rx/DC Orders Clinical Impression: Abdominal pain, Constipation Instructions: ED Abdominal Pain Unkn Cause Fem Prescriptions: No Action sertraline 50 MG tablet 100 mg PO DAILY Label Comments: DEPRESSION TOOK 07/18/15 metoprolol tartrate 100 MG tablet 100 mg PO DAILY Label Comments: BP TOOK 07/18/15 lisinopril 10 MG tablet 20 mg PO BID multivitamin with folic acid 1 TABLET tablet 1 tab PO DAILY Label Comments: SUPPLIMENT metformin 500 MG tablet 750 mg PO DAILY hydrochlorothiazide 25 MG tablet 25 mg PO DAILY Label Comments: TAKE 1 TABLET EVERY DAY metoprolol tartrate 100 mg tablet 50 mg PO QHS ergocalciferol (vitamin D2) [Vitamin D2] 1,250 mcg (50,000 unit) Capsule 1,250 mcg PO QWEEK ascorbic acid (vitamin C) 1,000 mg Capsule, Extended Release 1 cap PO DAILY cholecalciferol (vitamin D3) [Vitamin D3] 125 mcg (5,000 unit) Tablet 125 mcg PO DAILY Probiotic 100 billion cell Capsule 1 cap PO DAILY acetaminophen 500 mg Tablet 1,000 mg PO Q8 Qty: 0 0RF Rx Instructions: Do not take more than 3000 mg Tylenol in a 24-hour period. doxycycline monohydrate 100 mg Capsule 100 mg PO BID 13 Days Qty: 26 0RF Rx Instructions: Take for 2 weeks postoperatively aspirin 81 mg Tablet,Chewable 81 mg PO BID 30 Days Qty: 60 0RF Rx Instructions: Take 81 mg aspirin twice daily for 4 weeks postoperatively for DVT prophylaxis. famotidine 20 mg Tablet 20 mg PO DAILY Qty: 30 0RF meloxicam 7.5 mg Tablet 7.5 mg PO BID Qty: 0 0RF Rx Instructions: Do not take any other nonsteroidal anti-inflammatories while using meloxicam/Mobic. oxycodone 5 mg Tablet 5 - 10 mg PO Q4H PRN PRN (Reason: Pain Score 4-10) 5 Days Qty: 60 0RF sennosides-docusate sodium [Stool Softener-Stimulant Laxat] 8.6-50 mg Tablet 2 tab PO BID Qty: 20 0RF Rx Instructions: Postoperative anemia secondary to acute blood loss from surgery without any intra operative complications. Primary Care Provider: Tono Flowers Referrals: Tono Flowers MD [Primary Care Provider] - 3-5 Days if not improving Disposition Disposition: Home, Self Care
[2022-09-16 10:24] LABS: AST(SGOT) 13 U/L (15-37); Alanine Aminotransfer ALT/SGPT 19 U/L (13-56); Alkaline Phosphatase 79 U/L (45-117); Bilirubin, Direct 0.14 mg/dL (0.00-0.30); Globulin 3.9 g/dL (2.2-4.2); Protein, Total 7.9 g/dL (6.4-8.2)
[2022-09-16 10:34] VITALS: BP 181/95; PULSE 60; RESP 18; O2SAT 97
--- NOTE | 2022-09-16 11:23 | CT_ITS ---
STUDY: CT ABDOMEN AND PELVIS WITH CONTRAST REASON FOR EXAM: Female, 61 years old. One-week history of abdominal pain. RADIATION DOSAGE (If Supplied By Facility): CTDIvol = ( 26.93 ) mGy, DLP = ( 1366.32 ) mGycm TECHNIQUE: Transaxial images were obtained from the dome of the diaphragm to the symphysis pubis without oral contrast. IV 100mL Isovue-300 was administered. Sagittal and coronal images were reconstructed. Individualized dose optimization techniques were used for this CT. COMPARISON: None. FINDINGS: The visualized lung bases are unremarkable. The visualized portions of the heart are within normal limits. There is a 1.8 cm cyst in the left lobe of the liver. A second cyst is also seen in the peripheral aspect of the left lobe of the liver. Normal gallbladder and extrahepatic biliary system. Normal spleen. Normal pancreas. Normal bilateral adrenal glands. Normal right kidney. Normal left kidney. There is a small hiatal hernia. Normal small intestine. Normal colon. The appendix is visualized and appears normal. There is diffuse atherosclerotic calcification of the abdominal aorta, without a demonstrated aneurysm. Normal inferior vena cava. Normal retroperitoneum. Normal urinary bladder. Calcified enlarged fibroid uterus. Normal abdominal wall. There are degenerative changes of the visualized lumbar spine. CT/Abdomen/Pelvis W IV Cont ONLY IMPRESSION: Hepatic cysts. Small hilar hernia. Enlarged calcified fibroid uterus. Electronically Signed: Jonh Young MD at 12:31 EDT ,
== END 2022-09-16 12:58 | disposition home or self-care (01) ==
PROVIDERS: Emergency Provider Emergency Medicine; PCP Family Medicine; Visit Provider Emergency Medicine
DX: K59.00 Constipation, unspecified (principal); E11.9 Type 2 diabetes mellitus without complications; I10 Essential (primary) hypertension; G47.30 Sleep apnea, unspecified; Z78.0 Asymptomatic menopausal state; Z79.82 Long term (current) use of aspirin; Z79.84 Long term (current) use of oral hypoglycemic drugs; Z79.1 Long term (current) use of non-steroidal anti-inflammatories (NSAID); Z79.899 Other long term (current) drug therapy; Z87.891 Personal history of nicotine dependence
CPT/HCPCS: 74022; 74177; 80048; 80076; 85025; 99283; Q9967; A4216

== ENCOUNTER → 2022-10-28 | Outpatient (CLI) | payer OTHER, SELFPAY ==
[2022-10-28 18:21] LABS: Hematocrit 41.6 % (37-47); Hemoglobin 13.9 g/dL (12.0-15.0); Mean Corp Hgb Conc 33.4 g/dL (32-36); Mean Corpuscular Hgb 27.6 pg (27.0-32.0); Mean Corpuscular Volume 82.7 fL (81-99); Platelet Count 327 K/mm3 (150-450); Red Blood Count 5.03 M/mm3 (4.2-5.4); White Blood Count 11.9 K/mm3 (4.4-11.0)
[2022-10-28 18:32] LABS: RBC Distribution Width 13.7 % (11.6-14.6)
[2022-10-28 18:48] LABS: ALB/GLOB Ratio 1.1 RATIO (0.9-2.4); AST(SGOT) 17 U/L (15-37); Alanine Aminotransfer ALT/SGPT 29 U/L (13-56); Albumin, Serum 4.1 g/dL (3.2-5.0); Alkaline Phosphatase 86 U/L (45-117); Anion Gap 9 (5-15); BUN 11 mg/dL (7-18); BUN/Creat Ratio 16.5 RATIO (10-20); Calcium,Total 9.4 mg/dL (8.5-10.1); Chloride 98 mmol/L (98-107); Creatinine, Serum 0.67 mg/dL (0.55-1.02); EST Glomerular Filtration Rate 95 mL/min (>60); Est Glom Filt Rate - Afr Amer 115 mL/min (>60); Globulin 3.7 g/dL (2.2-4.2); Glucose 101 mg/dL (74-106); Lipase 106 U/L (73-393); Potassium 3.5 mmol/L (3.5-5.1); Protein, Total 7.8 g/dL (6.4-8.2); Sodium Level 135 mmol/L (136-145)
[2022-10-28 19:13] LABS: Lymphocyte 13 % (19-41); Metamyelocyte 1 % (0-1); Neutrophil-Band 3 % (0-5); Neutrophil-Segmented 80 % (47-70); Total Cells Counted 100 (MANUAL DIFF)
[2022-10-28 19:14] LABS: Monocyte 3 % (0-10)
[2022-10-28 19:15] LABS: Anisocytosis RARE; Platelet Estimate ADEQUATE (ADEQ); Red Cell Morphology N CHROM NORMAL (NORM C&C)
[2022-11-01 10:07] LABS: Pathologist Review Reviewed
[2022-11-01 16:08] LABS: Endomysial Antibody IgA Negative (Negative)
[2022-11-01 19:03] LABS: ANTINUCLEAR ANTIBODIES DIRECT Negative (Negative)
[2022-11-01 19:07] LABS: Deamidated Gliadin IgA 7 units (0-19); Deamidated Gliadin IgG 1 units (0-19); Immunoglobulin A 389 mg/dL (87-352); t-Transglutaminase IgA <2 U/mL (0-3)
== END | disposition home or self-care (01) ==
PROVIDERS: PCP Family Medicine; Referring Provider Family Medicine; Visit Provider Family Medicine
DX: R10.13 Epigastric pain (principal)
CPT/HCPCS: 36415; 80053; 82784; 83516; 83690; 85007; 85027; 86038; 86255

== ENCOUNTER → 2022-10-29 | Outpatient (CLI) | payer OTHER, SELFPAY ==
[2022-10-31 13:40] LABS: H. PYLORI STOOL AG Negative (Negative)
== END | disposition home or self-care (01) ==
LOC: MFPLAB 11:08
PROVIDERS: PCP Family Medicine; Referring Provider Family Medicine; Visit Provider Family Medicine
DX: R10.13 Epigastric pain (principal)
CPT/HCPCS: 87338

== ENCOUNTER → 2022-11-01 | Outpatient (CLI) | payer OTHER, SELFPAY ==
--- NOTE | 2022-11-01 07:42 | RAD_ITS ---
STUDY: AIR-CONTRAST UPPER GI SERIES AND SMALL BOWEL FOLLOW-THROUGH EXAMINATION. REASON FOR EXAM: Female, 62 years old. Dyspepsia FLUOROSCOPY TIME (if supplied): (73 seconds) minutes/seconds. 34 images were obtained. TECHNIQUE: The patient ingested barium. Air contrast upper GI series and small bowel follow-through examination were then performed. COMPARISON: None. FINDINGS: There is evidence of a small sliding hiatal hernia with gastroesophageal reflux. The remainder of the stomach and duodenum are unremarkable. No evidence of mass lesion. No evidence of ulceration. A small bowel follow-through examination was performed. No evidence of intrinsic or extrinsic small bowel disease. The terminal ileum is unremarkable. RAD/Upper GI/w Small Bowel IMPRESSION: Small sliding hiatal hernia with gastroesophageal reflux. Electronically Signed: Jonh Young MD at 10:03 [facility] ,
== END | disposition home or self-care (01) ==
LOC: RAD 07:41
PROVIDERS: PCP Family Medicine; Visit Provider Family Medicine
DX: R10.13 Epigastric pain (principal)
CPT/HCPCS: 74246; 74248

== ENCOUNTER 2022-11-26 06:20 | Day surgery (SDC) | payer OTHER, SELFPAY ==
[2022-11-26] VITALS (7 sets, daily range): BP systolic 143–163; BP diastolic 67–89; PULSE 50–57; RESP 16–18; TEMP 36.2–36.8; O2SAT 92–99; BMI 42.5
[2022-11-26] MEDS: Lactated Ringers 1,000 ML 15 ML IV (06:40)
--- NOTE | 2022-11-26 07:26 | PCM.HP.BLA ---
History and Physical Date of Admission: 11/26/22 Intake Vital Signs ? 09/16/2207:55 11/05/2214:03 Height 5 ft 4 in 5 ft 4 in Weight: ? 249 lb 8 oz BMI ? 42.8 BP ? 118/85 H Blood Pressure Location ? Rt brachial Position ? Sitting Respiration ? 17 Pulse ? 65 Pulse Source ? Monitor Temp ? 97.6 F L Temp Source ? Temporal Pulse Oximetry (%) ? 97 Oxygen Delivery Method ? room air Intake Visit Reasons:?DYSPEPSIA Chief Complaint: Hiatal hernia and abd pain Is patient in pain?: No Allergies Penicillins Allergy (Verified 11/05/22 14:05) Rash Medications lisinopril 10 mg tablet 20 mg PO BID 07/17/15 [History Confirmed 11/05/22] multivitamin with folic acid 400 mcg tablet 1 tab PO DAILY SUPPLEMENT 07/17/15 [History Confirmed 11/05/22] hydrochlorothiazide 25 mg tablet 25 mg PO DAILY water pill 01/26/19 [History Confirmed 11/05/22] Lactobacillus 40-Bifidobact 3-S.thermophilus 100 billion cell capsule (Probiotic) 1 cap PO DAILY probiotic 07/27/22 [History Confirmed 08/11/22] ascorbic acid (vitamin C) 1,000 mg capsule,extended release 1 cap PO DAILY supplement 07/27/22 [History Confirmed 11/05/22] cholecalciferol (vitamin D3) 125 mcg (5,000 unit) tablet (Vitamin D3) 125 mcg PO DAILY 07/27/22 [History Confirmed 11/05/22] ergocalciferol (vitamin D2) 1,250 mcg (50,000 unit) capsule (Vitamin D2) 1,250 mcg PO QWEEK supplement 07/27/22 [History Confirmed 11/05/22] metoprolol tartrate 100 mg tablet 50 mg PO QHS heart 07/27/22 [History Confirmed 11/05/22] acetaminophen 500 mg tablet 1,000 mg PO Q8 #0 tabs 08/12/22 [Rx Confirmed 11/05/22] aspirin 81 mg chewable tablet 81 mg PO BID 30 days #60 tabs 08/12/22 [Rx Confirmed 11/05/22] doxycycline monohydrate 100 mg capsule 100 mg PO BID 13 days #26 caps 08/12/22 [Rx] famotidine 20 mg tablet 20 mg PO DAILY #30 tabs 08/12/22 [Rx Confirmed 11/05/22] lisinopril 20 mg tablet 20 mg PO BID 11/05/22 [History Confirmed 11/05/22] omeprazole 20 mg capsule,delayed release 20 mg PO BID 11/05/22 [History Confirmed 11/05/22] PFSH Medical History? Anxiety and depression Arthritis CPAP (continuous positive airway pressure) dependence Diabetes Dietary restriction Former smoker History of echocardiogram History of edema History of stress test Hypertension Post-menopausal Sleep apnea Wears glasses Surgical History? History of colonoscopy Status post right foot surgery Social History? Smoking Status:? Never smoker alcohol intake:? current details:? social substance use type:? does not use caffeine:? Yes what type of physical activity do you participate in:? walking seatbelt use:? always do you feel safe at home:? Yes additional social history:? Bill- Self Employed? Patient works at [employer] [facility] HPI HPI: Patient is a 62-year-old female complaining of epigastric pain.? She says that she has burning especially at night.? She was started on a PPI but it is ineffective and she takes it twice a day.? She denies any nausea or vomiting.? She says she did take a lot of NSAIDs this started when she had her knee surgery about the end of July. ROS General General: Yes weight change; No appetite, fatigue, colon cancer, breast cancer or weakness HEENT HEENT: No difficulty swallowing, eye injury, eye surgery, swollen glands or hoarseness Endo Endocrine: No thyroid disease, diabetes mellitus, thyroid cancer, Hair loss, heat intolerance or cold intolerance Skin Skin: No rash or changing moles Breast Breast: No left breast lump, right breast lump, nipple discharge, breast pain, abnormal mammogram, abnormal US or breast enlargement Musc Musculoskeletal: Yes back problems and arthritis; No rheumatoid arthritis, gout or joint pain Cardio Cardiovascular: Yes high blood pressure; No murmur, pacemaker, heart disease, atrial fibrillation, heart attack, heart stent, palpitations, shortness of breat with exertion or chest pain Psych Psychiatric: Yes depression and anxiety; No hearing voices Resp Respiratory: No shortness of breath, Yes sleep apnea, No cough, No COPD, No asthma, No emphysema and No wheezing Gastro Gastrointestinal: Yes abdominal pain, No nausea or vomiting, Yes diarrhea, Yes constipation, No blood in stool, Yes acid reflux, No hemorrhoids, No ulcers, No gallbladder problem and No black,tarry stools [place] Hematologic: No blood thinners, No blood disorders, No bleeding, No anemia and No blood clots Neuro Neurologic: No system reviewed and no additional complaints, except as documented, No as per HPI, No abnormal gait, No abnormal hearing, No abnormal movements, No abnormal speech, No behavioral changes, No burning sensations, No confusion, No convulsions, No disequilibrium, No dizziness, No localized weakness, No frequent falls, No headache(s), No lack of coordination, No loss of vision, No memory loss, No numbness, No other visual disturbances, No radicular pain, No restless legs, No sensory deficit, No syncope, No tingling, No tremor(s), No weakness and No other Exam Const General: cooperative Orientation: alert and oriented x3 HENMT Head: normal to inspection Neck Neck: normal visual inspection and full ROM Chest Chest palpation & inspection: normal inspection of the chest Resp Effort & Inspection: normal respiratory effort Auscultation: clear to auscultation bilaterally Cardio Rate: regular rate Rhythm: regular rhythm GI Inspection: non-distended Palpation: soft and nontender Skin General: no rashes or lesions noted Neuro General: patient alert and patient oriented x3 Extrem General: full ROM Psych Appearance: grossly normal Mental Status: mental status grossly normal Assessment and Plan Assessment and Plan (1) GERD (gastroesophageal reflux disease): ?Status:?Acute ?Plan: Patient is having epigastric tenderness and she is concerned for an ulcer.? She has been on a PPI but it only helps if she takes it twice a day.? I did encourage her to try taking the Carafate that her PCP had prescribed.? I will perform an EGD to check for ulcers and may possibly biopsy for H. pylori. I explained endoscopy in detail to the patient.? I explained the risks including but not limited to stroke or heart attack with anesthesia, perforation of the GI tract, bleeding, infection.? I explained that any of these could necessitate further emergency surgery.? The patient understands and all questions were answered sufficiently.? The patient wishes to proceed with procedure. Ashutosh Rosales MD Pager: [facility] [address] [place] [address], [address] [place] [address] Office: I have examined the patient and the H&P has been reviewed. There are no clinical changes since date of exam.
--- NOTE | 2022-11-26 07:30 | IMM_PTH ---
PATIENT: HANS COREA LOC: EN U#:[id number] AGE/SX: 62/F ROOM: RE11/26/[address]: Dr. Ashutosh Rosales MD : 1960 BED: DIS: 11/26/2022 SPEC #: [id number] RECD: 11/26/22 13:52 STATUS: HOOD REQ #: [id number] SID: 11/26/22 07:[address]: Ashutosh Rosales DEPT: IMMUNOHISTOCHEMISTRY RECD BY: Natty Matos ENTERED: 11/26/22 13:53 SP TYPE: IMMUNO OTHR DR: Dr. Tono Flowers MD Tissues: Stomach, NOS Procedures: H Pylori (initial) KI-67 (add) P53 (add) PHYSICIAN & INSTITUTION [place] [id number] SPECIMEN INFORMATION: Tissue Source: Antrum biopsy Clinical Info: GERD Specimen Number: [id number] CPT code: 55638, 59899 x2 METHODOLOGY: Deparaffinized sections of prefer/formalin-fixed tissue or PAP/DQ stained slides are incubated with monoclonal/polyclonal antibodies/oligonucleotide probes. Localization is made via biotin free immunoperoxidase method. Appropriate controls are performed and reacted as expected. Results on target cell population are indicated in the following table: RESULTS: ANTIBODY / CLONE RESULT H Pylori (polyclonal) negative P53 (DO-7) negative Ki-67 (30-9) positive, low These tests were developed and their performance characteristics determined by [facility]. They may not have been cleared or approved by the U.S. Food and Drug Administration. The FDA has determined that such clearance or approval is not necessary. The above immunohistochemical/dualISH markers are ordered and reviewed by the Pathologist. INTERPRETATION: Antrum, biopsy: Negative for Helicobacter pylori organisms. No evidence of dysplasia. AM:melly 11/30/2022
--- NOTE | 2022-11-26 07:30 | EGD_PTH ---
PATIENT: HANS COREA LOC: EN U#:[id number] AGE/SX: 62/F ROOM: RE11/26/[address]: Dr. Ashutosh Rosales MD : 1960 BED: DIS: 11/26/2022 SPEC #: [id number] RECD: 11/26/22 11:49 STATUS: HOOD HAYNESShelby #: [id number] SID: 11/26/22 07:[address]: Ashutosh Rosales DEPT: SURGICAL PATHOLOGY RECD BY: Maritza Gonzalez ENTERED: 11/26/22 13:05 SP TYPE: EGD BIOPSY OTHR DR: Dr. Tono Flowers MD Tissues: Gastric mucous membrane Procedures: Special Stain Group II Surgery Specimen Level IV Alcian Blue/PAS (control) HEADER OPERATION: EGD ([facility]) PRE-OP DIAGNOSIS: GERD TISSUE SUBMITTED: Antrum biopsy for histo and H. pylori MICROSCOPIC DIAGNOSIS Gastric antrum, biopsy: Chronic gastritis. Intestinal metaplasia. No evidence of dysplasia. See comment. AM:melly 11/29/2022 COMMENT The results of immunohistochemistry for Helicobacter pylori will be reported separately ([id number]). Immunohistochemistry ([id number]) for P53 and Ki-67 will be performed and results will be reported separately. Alcian blue/PAS stain with matched control supports the above diagnosis. MICROSCOPIC DESCRIPTION Slides are reviewed. GROSS DESCRIPTION Received in fixative is one container labeled with the patient's name and designated antrum biopsy. The specimen consists of two irregular fragments of light miller soft tissue that in aggregate measure 0.5 x 0.4 x 0.1 cm. The specimen is totally submitted in one cassette. / SJ:melly 11/26/2022 TC:3 CPT: 84306
--- NOTE | 2022-11-26 08:08 | OP.EGD_ITS ---
Patient Name: Chiqui Wallace Procedure Date: 11/26/2022 7:43 AM Date of : 1960 Age: 62 Procedure: Upper GI endoscopy Indications: Epigastric abdominal pain Providers: Ashutosh Rosales MD Medicines: Monitored Anesthesia Care Patient Profile: This is a 62 year old female. Refer to note in patient chart for documentation of history and physical. Complications: No immediate complications. Procedure: Pre-Anesthesia Assessment: - Prior to the procedure, a History and Physical was performed, and patient medications and allergies were reviewed. The patient's tolerance of previous anesthesia was also reviewed. The risks and benefits of the procedure and the sedation options and risks were discussed with the patient. All questions were answered, and informed consent was obtained. Prior Anticoagulants: The patient has taken no previous anticoagulant or antiplatelet agents. After reviewing the risks and benefits, the patient was deemed in satisfactory condition to undergo the procedure. After obtaining informed consent, the endoscope was passed under direct vision. Throughout the procedure, the patient's blood pressure, pulse, and oxygen saturations were monitored continuously. The Endoscope was introduced through the mouth, and advanced to the third part of duodenum. The upper GI endoscopy was accomplished without difficulty. The patient tolerated the procedure well. Scope In: 7:53:46 AM Scope Out: 7:56:15 AM Total Procedure Duration Time 0 hours 2 minutes 29 seconds Findings: The esophagus was normal. The stomach was normal. The examined duodenum was normal. Biopsies were taken with a cold forceps in the gastric antrum for Helicobacter pylori testing. Impression: - Normal esophagus. - Normal stomach. - Normal examined duodenum. - Biopsies were taken with a cold forceps for Helicobacter pylori testing. Recommendation: - Await pathology results. - Discharge patient to home. - Resume previous diet. - Continue present medications. - Perform a RUQ ultrasound at appointment to be scheduled. Procedure Code(s): --- Professional --- 32818, Esophagogastroduodenoscopy, flexible, transoral; with biopsy, single or multiple Diagnosis Code(s): --- Professional --- R10.13, Epigastric pain CPT copyright 2017 [employer]. All rights reserved. The codes documented in this report are preliminary and upon service desk team lead review may be revised to meet current compliance requirements. Ashutosh Rosales MD 11/26/2022 8:07:41 AM This report has been signed electronically. Number of Addenda: 0 Note Initiated On: 11/26/2022 7:43 AM
--- NOTE | 2022-11-26 08:08 | OP.CCLET_ITS ---
11/26/2022 Tono Flowers [address] [place] [address] Re : Upper GI endoscopy procedure for Chiqui Wallace Dear Dr. Flowers This procedure was performed on Saturday, November 26, 2022. My impressions and recommendations are as follows: Impressions : - Normal esophagus. - Normal stomach. - Normal examined duodenum. - Biopsies were taken with a cold forceps for Helicobacter pylori testing. Recommendations : - Await pathology results. - Discharge patient to home. - Resume previous diet. - Continue present medications. - Perform a RUQ ultrasound at appointment to be scheduled. My findings are described in the full procedure note, which is enclosed. If I can be of further assistance, please feel free to contact me at Doctor phone number(s): , Work: . Sincerely, Ashutosh Rosales MD 11/26/2022 8:07:41 AM This report has been signed electronically.
== END 2022-11-26 08:41 | disposition home or self-care (01) ==
LOC: EN 06:21 → AC 06:22
PROVIDERS: PCP Family Medicine; Referring Provider Family Medicine; Visit Provider Surgery
PROC: 0DJ08ZZ Inspection of Upper Intestinal Tract, Via Natural or Artificial Opening Endoscopic (ICD-10-PCS; CPT 43235; principal; 2022-11-26 07:25)
DX: K31.A11 Gastric intestinal metaplasia without dysplasia, involving the antrum (principal); E11.9 Type 2 diabetes mellitus without complications; K29.50 Unspecified chronic gastritis without bleeding; K44.9 Diaphragmatic hernia without obstruction or gangrene; I10 Essential (primary) hypertension; Z78.0 Asymptomatic menopausal state; Z79.82 Long term (current) use of aspirin; Z79.899 Other long term (current) drug therapy; Z87.891 Personal history of nicotine dependence; Z96.651 Presence of right artificial knee joint
CPT/HCPCS: 43239; 88305; 88313; 88341; 88342; J7120; J2405

== ENCOUNTER → 2022-11-30 | Outpatient (CLI) | payer OTHER, MEDICAID, SELFPAY ==
--- NOTE | 2022-11-30 07:22 | US_ITS ---
STUDY: ABDOMINAL ULTRASOUND - RIGHT UPPER QUADRANT REASON FOR VISIT: Female, 62 years old Abd Pain TECHNIQUE: Ultrasound evaluation of the right upper quadrant was performed with real-time and static mckay-scale imaging. TECHNICAL QUALITY: Adequate. COMPARISON: Comparison is made with prior study dated 03/06/2019. FINDINGS: Liver: The liver measures 13.4 cm. There is increased echogenicity consistent with fatty infiltration. The bile ducts are within normal limits. There is hepatic color flow. The direction of portal flow is hepatopetal. There is a 2.3 cm x 1.9 cm x 1.8 cm cyst in the left lobe of the liver. Gallbladder: Normal distended gallbladder. The gallbladder wall measures 1.7 mm. There is a negative sonographic Giles''s sign. There is no pericholecystic fluid. There are no gallstones. Common Bile Duct (C.B.D.): The common bile duct measures 2.5 mm. Pancreas: Normal size of the head, body of the pancreas. The tail portion is obscured due to overlying bowel gas. There is normal echogenicity of the pancreas. There is no demonstrated pancreatic mass or cyst. Right Kidney: Normal size of the right kidney. The right kidney measures 13.5 cm x 5.6 x 5 cm. Normal renal cortex. The right cortex measures 1.6 cm. There is no demonstrated renal mass or cyst. There is no right hydronephrosis. US/Gallbladder IMPRESSION: Fatty infiltration of the liver. 2.3 cm x 1.9 cm x 1.8 cm cyst in the left lobe of the liver. Electronically Signed: Jonh Young MD at 12:35 EST ,
== END | disposition home or self-care (01) ==
PROVIDERS: PCP Family Medicine; Referring Provider Surgery; Visit Provider Surgery
DX: R10.9 Unspecified abdominal pain (principal)
CPT/HCPCS: 76705

== ENCOUNTER 2023-01-06 16:30 | Outpatient (RCR) | payer OTHER, MEDICAID, SELFPAY ==
--- NOTE | 2023-02-07 08:00 | HP.PT.NRP ---
HANS COREA was seen in my office for initial evaluation on 12/02/22. The following Plan of Care was established for this patient: This patient was last seen in our office . Pertinent comments regarding their Physical therapy will appear below: Dry Needling- D/C At this point I will be discontinuing this patient from physical therapy. I would be happy to see this patient again in the future if found appropriate by the physician. Thank you! YESSENIA IrwinT
== END 2023-01-06 19:00 | disposition home or self-care (01) ==
LOC: PT 16:30
PROVIDERS: PCP Family Medicine
DX: Z00.00 Encounter for general adult medical examination without abnormal findings (principal)

== ENCOUNTER → 2023-03-24 | Outpatient (CLI) | payer OTHER, SELFPAY ==
--- NOTE | 2023-03-24 09:17 | BI_ITS ---
MAMMOGRAPHY - BILATERAL SCREENING REASON FOR EXAM: Female, 62 years old. Routine annual screening examination. PERTINENT HISTORY: Non-contributory. TECHNIQUE: Digital bilateral breast amssimo (3D mammographic acquisition) in the CC and MLO projections. 2-D mediolateral oblique (MLO) and craniocaudad (CC) views of both breasts were obtained. CAD: Full Field Digital Mammography with Computer Added Detection was performed. COMPARISON: Comparison is made with prior study dated March 02, 2022 and September 19, 2020. FINDINGS: Breast Composition: The breasts are almost entirely fatty. There are no dominant masses or suspicious calcifications. Stable small benign-appearing bilateral axillary lymph nodes. No other significant abnormalities are identified. There has been no significant change since the prior study. BI/SCRN MAMM (CAD)W/MASSIMO BILAT IMPRESSION: Stable bilateral screening mammogram. Yearly follow-up mammogram recommended. (A) ASSESSMENT CATEGORY: BIRADS Category 2: Benign. A letter regarding these results will be sent to the patient by the facility within 30 days. Approximately 10% of breast cancers are not detected by mammography. A normal mammogram should not delay biopsy of a clinically suspicious abnormality. [id number] Electronically Signed: Jonh Young MD at 10:30 EDT ,
[2023-04-01 12:09] LABS: HPV APTIMA, High Risk Negative (Negative)
== END | disposition home or self-care (01) ==
PROVIDERS: PCP Family Medicine; Referring Provider Nurse Practitioner Women's Health; Visit Provider Nurse Practitioner Women's Health
DX: Z12.31 Encounter for screening mammogram for malignant neoplasm of breast (principal); Z12.4 Encounter for screening for malignant neoplasm of cervix
CPT/HCPCS: 77063; 77067; 87624; 88175; G0145

== ENCOUNTER → 2024-01-06 | Outpatient (CLI) | payer OTHER, SELFPAY ==
[2024-01-06 10:17] LABS: Absolute Lymphocyte Count 1.63 X10^3/uL (0.83-4.51); Absolute Neutrophil Count 5.1 X10^3/uL (2.0-7.7); Basophil# 0.04 X10^3/uL; Basophil% 0.5 % (0-1); Eosinophil# 0.09 X10^3/uL; Eosinophils% 1.2 % (0-5); Hematocrit 40.2 % (37-47); Hemoglobin 12.9 g/dL (12.0-15.0); Lymphocyte # 1.63 X10^3/ul (0.83-4.51); Lymphocyte % 21.8 % (19-41); Mean Corp Hgb Conc 32.1 g/dL (32-36); Mean Corpuscular Volume 87.2 fL (81-99); Mean Platelet Vol. 9.8 fl (6.2-12.0); Monocyte# 0.58 X10^3/uL; Monocyte% 7.8 % (0-10); NRBC Flagged by Analyzer 0 % (0-5); Neutrophil # 5.12 X10^3/uL (2.7-7.7); Neutrophil % 68.4 % (47-70); Platelet Count 233 K/mm3 (150-450); RBC Distribution Width CV 12.7 % (11.6-14.6); RBC Distribution Width SD 40.3 fl (35.1-43.9); Red Blood Count 4.61 M/mm3 (4.2-5.4); White Blood Count 7.5 K/mm3 (4.4-11.0)
[2024-01-06 10:44] LABS: Microalbumin,Random Urine 49.8 mg/L (NO RANGE EST.); Microalbumin:Creatinine Ratio 48.8 mg/g CRE (<30 mg/g CRE)
[2024-01-06 10:57] LABS: AST(SGOT) 9 U/L (15-37); Alanine Aminotransfer ALT/SGPT 22 U/L (13-56); Albumin, Serum 3.6 g/dL (3.2-5.0); Alkaline Phosphatase 72 U/L (45-117); Anion Gap 4 (5-15); BUN 21 mg/dL (7-18); BUN/Creat Ratio 26.1 RATIO (10-20); Calcium,Total 9.1 mg/dL (8.5-10.1); Chloride 108 mmol/L (98-107); Cholesterol 200 mg/dL (200); EST Glomerular Filtration Rate 77 mL/min (>60); Est Glom Filt Rate - Afr Amer 93 mL/min (>60); GGTP 22 U/L (5-55); Globulin 3.6 g/dL (2.2-4.2); Glucose 135 mg/dL (74-106); High Density Lipoprotein 53 mg/dL; Potassium 4.1 mmol/L (3.5-5.1); Protein, Total 7.2 g/dL (6.4-8.2); Sodium Level 139 mmol/L (136-145); Triglycerides 148 mg/dL; Very Low Density Lipoprotein 30 mg/dL (5-40)
[2024-01-06 12:06] LABS: Hemoglobin A1c 5.7 % (3.8-5.6)
== END | disposition home or self-care (01) ==
LOC: MFPLAB 08:25
PROVIDERS: PCP Family Medicine; Visit Provider Family Medicine
DX: I10 Essential (primary) hypertension (principal); E66.01 Morbid (severe) obesity due to excess calories; K76.0 Fatty (change of) liver, not elsewhere classified; E88.810 Metabolic syndrome
CPT/HCPCS: 36415; 80053; 80061; 82043; 82570; 82977; 83036; 85025

== ENCOUNTER → 2024-05-03 | Outpatient (CLI) | payer OTHER, SELFPAY ==
[2024-05-03 10:06] LABS: International Normalized Ratio 1.1; Prothrombin Time (Protime)PT. 14.4 SECONDS (11.7-14.9)
[2024-05-03 10:53] LABS: ALB/GLOB Ratio 1.1 RATIO (0.9-2.4); AST(SGOT) 13 U/L (15-37); Alanine Aminotransfer ALT/SGPT 20 U/L (13-56); Albumin, Serum 3.8 g/dL (3.2-5.0); Alkaline Phosphatase 77 U/L (45-117); Anion Gap 5 (5-15); BUN 14 mg/dL (7-18); BUN/Creat Ratio 18.6 RATIO (10-20); Calcium,Total 9.2 mg/dL (8.5-10.1); Chloride 104 mmol/L (98-107); Creatinine, Serum 0.75 mg/dL (0.55-1.02); EST Glomerular Filtration Rate 82 mL/min (>60); Est Glom Filt Rate - Afr Amer 100 mL/min (>60); Globulin 3.5 g/dL (2.2-4.2); Glucose 154 mg/dL (74-106); Potassium 4.3 mmol/L (3.5-5.1); Protein, Total 7.3 g/dL (6.4-8.2); Sodium Level 140 mmol/L (136-145)
[2024-05-03 11:14] LABS: Microalbumin,Random Urine 95.1 mg/L (NO RANGE EST.); Microalbumin:Creatinine Ratio 119.2 mg/g CRE (<30 mg/g CRE)
[2024-05-03 12:54] LABS: Hemoglobin A1c 5.4 % (3.8-5.6)
== END | disposition home or self-care (01) ==
PROVIDERS: PCP Family Medicine; Visit Provider Family Medicine
DX: K76.0 Fatty (change of) liver, not elsewhere classified (principal); E88.1 Lipodystrophy, not elsewhere classified; R80.9 Proteinuria, unspecified
CPT/HCPCS: 36415; 80053; 82043; 82570; 83036; 85610

== ENCOUNTER → 2025-04-15 | Outpatient (CLI) | payer OTHER, SELFPAY ==
[2025-04-15 10:19] LABS: Absolute Lymphocyte Count 1.83 X10^3/uL (0.83-4.51); Absolute Neutrophil Count 5.2 X10^3/uL (2.0-7.7); Basophil# 0.04 X10^3/uL; Basophil% 0.5 % (0-1); Eosinophil# 0.27 X10^3/uL; Eosinophils% 3.4 % (0-5); Hematocrit 40.4 % (37-47); Hemoglobin 13.4 g/dL (12.0-15.0); Lymphocyte # 1.83 X10^3/ul (0.83-4.51); Mean Corp Hgb Conc 33.2 g/dL (32-36); Mean Corpuscular Hgb 28.8 pg (27.0-32.0); Mean Corpuscular Volume 86.7 fL (81-99); Mean Platelet Vol. 9.8 fl (6.2-12.0); Monocyte# 0.59 X10^3/uL; Monocyte% 7.4 % (0-10); NRBC Flagged by Analyzer 0 % (0-5); Neutrophil % 65.4 % (47-70); Platelet Count 233 K/mm3 (150-450); RBC Distribution Width CV 12.5 % (11.6-14.6); RBC Distribution Width SD 39.2 fl (35.1-43.9); Red Blood Count 4.66 M/mm3 (4.2-5.4)
[2025-04-15 11:05] LABS: Microalbumin:Creatinine Ratio 914.9 mg/g CRE
[2025-04-15 13:03] LABS: ALB/GLOB Ratio 1.5 RATIO (0.9-2.4); AST(SGOT) 13 U/L (<=31); Alanine Aminotransfer ALT/SGPT 15 U/L (<=34); Albumin, Serum 4.5 g/dL (3.4-4.8); Alkaline Phosphatase 86 U/L (35-104); Anion Gap 12 (5-15); BUN 18 mg/dL (4-19); BUN/Creat Ratio 24.8 RATIO (10-20); Calcium,Total 9.8 mg/dL (7.6-11.0); Carbon Dioxide 25.6 mmol/L (21.0-32.0); Chloride 102 mmol/L (98-108); Cholesterol 214 mg/dL (<=200); Creatinine, Serum 0.74 mg/dL (0.70-1.20); EST Glomerular Filtration Rate 90 (>60); Glucose 145 mg/dL (70-99); High Density Lipoprotein 49 mg/dL; Low Density Lipoprotein Calc. 134 mg/dL; Potassium 4.2 mmol/L (3.3-5.1); Protein, Total 7.6 g/dL (5.9-8.4); Sodium Level 140 mmol/L (133-145); Total Bilirubin 0.45 mg/dL (0.00-1.30); Triglycerides 158 mg/dL; Very Low Density Lipoprotein 32 mg/dL (5-40); cholesterol:hdl ratio screen 4.38
== END | disposition home or self-care (01) ==
LOC: MTLAB 09:07
PROVIDERS: PCP Family Medicine; Referring Provider Family Medicine; Visit Provider Family Medicine
DX: K76.0 Fatty (change of) liver, not elsewhere classified (principal); E88.810 Metabolic syndrome
CPT/HCPCS: 36415; 80053; 80061; 82043; 82570; 84443; 85025